=== PATIENT | male | born 1945 | race Caucasian/White ===

== ENCOUNTER 2017-11-17 17:09 | Inpatient (IN) | payer MEDICARE ==
[~2017-11-17] VITALS: Ht 210.8 cm; Wt 111.0 kg
[2017-11-17] MEDS ORDERED: SODIUM CHLORIDE 0.9% 500 ML IV ONE (17:35)
[2017-11-17] MEDS ORDERED: PANTOPRAZOLE 40 MG/10 ML VIAL IV ONE (17:45)
[2017-11-17 18:02] LABS: Basophils # (auto) 0 uL; Basophils % (auto) 0.2 % (0.0-2.0); Eosinophils # (auto) 0 uL; Hematocrit 35.9 % (41.0-53.0); Hemoglobin 12.4 g/dL (13.5-17.5); Lymphocytes % (auto) 6.7 % (10.0-50.0); Mean Corpuscular Hemoglobin 32.9 pg (28.0-32.0); Mean Corpuscular Hgb Conc. 34.6 g/dL (32.0-36.0); Monocytes # (auto) 1.3 uL; Monocytes % (auto) 9.1 % (0.0-12.0); Neutrophils # (auto) 12.4 uL; Platelet Count (auto) 206 10^3/uL (140-450); Red Blood Cells 3.78 10^6/uL (4.5-5.90); Red Cell Distribution Width 13.4 % (11.8-14.3); White Blood Cell 14.7 10^3/uL (4.4-10.8)
[2017-11-17 18:17] LABS: INR 1.29 (0.9-1.15); Partial Thromboplastin Time 25.3 sec (23.78-33.04); Prothrombin Time 13.6 sec (9.27-12.13)
[2017-11-17 18:23] LABS: Albumin 3.6 g/dL (3.4-5.0); BUN/Creatinine Ratio 45.8; Bilirubin, Total 1.6 mg/dL (0.2-1.0); Potassium 4.6 mmol/L (3.5-5.1); Total Protein 7.3 g/dL (6.4-8.2)
[2017-11-17] MEDS ORDERED: SODIUM CHLORIDE 0.9% 1,000 ML IV ONE (20:00)
[2017-11-17] MEDS ORDERED: MORPHINE SULFATE 8mg/ml INJ SDV IV ONE (20:00)
[2017-11-17] MEDS ORDERED: ONDANSETRON HCL 4 MG/2 ML VIAL IV ONE (20:00)
[2017-11-17] MEDS ORDERED: MORPHINE SULF INJ 2 MG/ML SYRINGE 1ML ONE (20:06)
[2017-11-17] MEDS ORDERED: ACETAMINOPHEN 325 MG TAB PO PRN (21:15)
[2017-11-17] MEDS ORDERED: NITROGLYCERIN 0.4 MG SL TAB SL PRN (21:15)
[2017-11-17] MEDS ORDERED: MORPHINE SULF(PF) 0.5MG/ML 10ML VIAL IV PRN (21:15)
[2017-11-17] MEDS ORDERED: TEMAZEPAM 15 MG CAP PO PRN (21:15)
[2017-11-17] MEDS ORDERED: ONDANSETRON HCL 4 MG/2 ML VIAL IV PRN (21:15)
[2017-11-17] MEDS: PANTOPRAZOLE 40 MG/10 ML VIAL IV SCH (21:22)
[2017-11-17] MEDS: SODIUM CHLORIDE 0.9% 1,000 ML IV SCH (21:27)
[2017-11-17 22:01] LABS: Hematocrit 33.6 % (41.0-53.0); Hemoglobin 11.9 g/dL (13.5-17.5)
[2017-11-17 22:23] LABS: Urine Bacteria NONE SEEN /hpf (None Seen); Urine Blood Negative /uL (Negative); Urine Hyaline Cast FEW /lpf (0 - 2); Urine Specific Gravity 1.022 (1.001-1.035); Urine WBC 2 /hpf (0 - 3)
[2017-11-17] MEDS ORDERED: DIGOXIN (250MCG/ML) 2 ML AMPULE IV ONE (23:15)
[2017-11-17 23:25] VITALS: BP 122/80
[2017-11-17 23:30] VITALS: BP 122/80
[2017-11-17] MEDS: HYDROcodone-ACET 5/325MG TAB PO PRN (23:53)
[2017-11-18] MEDS: NALBUPHINE HCL 10 MG/1ml INJECTION IV PRN ×4 (03:29→17:46)
[2017-11-18 03:47] LABS: Basophils # (auto) 0 uL; Basophils % (auto) 0.2 % (0.0-2.0); Eosinophils # (auto) 0 uL; Hematocrit 31.4 % (41.0-53.0); Hemoglobin 11.2 g/dL (13.5-17.5); Lymphocytes # (auto) 1.8 uL; Lymphocytes % (auto) 12.2 % (10.0-50.0); Mean Corpuscular Hemoglobin 33.7 pg (28.0-32.0); Mean Corpuscular Hgb Conc. 35.6 g/dL (32.0-36.0); Mean Corpuscular Volume 94.7 fL (80.0-100.0); Monocytes # (auto) 1.3 uL; Monocytes % (auto) 8.8 % (0.0-12.0); Neutrophils # (auto) 11.5 uL; Neutrophils % (auto) 78.8 % (37.0-80.0); Platelet Count (auto) 186 10^3/uL (140-450); Red Blood Cells 3.32 10^6/uL (4.5-5.90); Red Cell Distribution Width 13.5 % (11.8-14.3); White Blood Cell 14.6 10^3/uL (4.4-10.8)
[2017-11-18 04:07] LABS: Albumin 3.5 g/dL (3.4-5.0); BUN/Creatinine Ratio 59.8; Bilirubin, Total 0.8 mg/dL (0.2-1.0); Calcium 8.8 mg/dL (8.5-10.1); Total Protein 6.8 g/dL (6.4-8.2)
[2017-11-18] MEDS: SODIUM CHLORIDE 0.9% 1,000 ML IV SCH (04:09)
[2017-11-18] MEDS ORDERED: CARV6.25 PO (06:03)
[2017-11-18] MEDS ORDERED: RIVA20TA PO (06:03)
[2017-11-18] MEDS ORDERED: METO25TA5 PO (06:03)
[2017-11-18] MEDS ORDERED: SIMV-13 PO (06:03)
[2017-11-18] MEDS ORDERED: HYDR-4683 PO (06:03)
[2017-11-18] MEDS ORDERED: ASPI-498 OR (06:03)
[2017-11-18] MEDS ORDERED: DIGO0.1262 PO (06:03)
[2017-11-18] MEDS ORDERED: AMLO5TAB2 PO (06:03)
[2017-11-18] MEDS: HYDROcodone-ACET 5/325MG TAB PO PRN (07:57)
[2017-11-18] MEDS: PANTOPRAZOLE 40 MG/10 ML VIAL IV SCH ×2 (09:25→21:05)
[2017-11-18] MEDS: DIGOXIN 0.125 MG TAB PO SCH (09:26)
[2017-11-18] MEDS: amLODIPine BESYLATE 5 MG TAB PO SCH (09:27)
[2017-11-18] MEDS ORDERED: METOPROLOL TARTRATE 25 MG TAB PO SCH (10:00)
[2017-11-18 12:00] VITALS: BP 124/85
[2017-11-18] MEDS ORDERED: METOPROLOL TARTRATE 25 MG TAB PO ONE (13:00)
[2017-11-18 16:00] VITALS: BP 145/92
[2017-11-18 20:31] VITALS: BP 124/83
[2017-11-18 20:58] VITALS: BP 143/82
[2017-11-18] MEDS: HYDROcodone-ACET 10/325MG TAB PO PRN (21:05)
[2017-11-18] MEDS: METOPROLOL TARTRATE 50 MG TAB PO SCH (21:05)
[2017-11-18] MEDS: PRAVASTATIN SODIUM 20 MG TAB PO SCH (21:06)
[2017-11-18] MEDS ORDERED: PATIENTS OWN MEDICATION (simvastatin 40 MG) PO SCH (22:00)
[2017-11-19 00:28] VITALS: BP 115/70
[2017-11-19] MEDS ORDERED: PHENAZOPYRIDINE HCL 100 MG TAB PO ONE (02:15)
[2017-11-19 05:23] LABS: Basophils # (auto) 0 uL; Basophils % (auto) 0.1 % (0.0-2.0); Eosinophils # (auto) 0 uL; Eosinophils % (auto) 0.2 % (0.0-7.0); Hematocrit 28.2 % (41.0-53.0); Hemoglobin 9.9 g/dL (13.5-17.5); Lymphocytes # (auto) 1.8 uL; Lymphocytes % (auto) 14.2 % (10.0-50.0); Mean Corpuscular Hemoglobin 33.6 pg (28.0-32.0); Mean Corpuscular Hgb Conc. 35.1 g/dL (32.0-36.0); Mean Corpuscular Volume 95.8 fL (80.0-100.0); Monocytes # (auto) 0.9 uL; Monocytes % (auto) 7.2 % (0.0-12.0); Neutrophils # (auto) 9.8 uL; Neutrophils % (auto) 78.3 % (37.0-80.0); Platelet Count (auto) 171 10^3/uL (140-450); Red Blood Cells 2.95 10^6/uL (4.5-5.90); Red Cell Distribution Width 13.4 % (11.8-14.3); White Blood Cell 12.5 10^3/uL (4.4-10.8)
[2017-11-19 05:39] LABS: Calcium 8.2 mg/dL (8.5-10.1)
[2017-11-19 08:00] VITALS: BP 116/68
[2017-11-19] MEDS: amLODIPine BESYLATE 5 MG TAB PO SCH (10:00)
[2017-11-19] MEDS: PANTOPRAZOLE 40 MG/10 ML VIAL IV SCH ×2 (10:55→20:18)
[2017-11-19] MEDS: METOPROLOL TARTRATE 50 MG TAB PO SCH ×2 (10:56→20:19)
[2017-11-19] MEDS: DIGOXIN 0.125 MG TAB PO SCH (10:56)
[2017-11-19] MEDS: HYDROcodone-ACET 10/325MG TAB PO PRN ×3 (10:57→18:51)
[2017-11-19 12:00] VITALS: BP 123/69
[2017-11-19] MEDS: PHENAZOPYRIDINE HCL 100 MG TAB PO SCH ×2 (14:28→18:00)
[2017-11-19 16:00] VITALS: BP_SYST 109; BP_SYST 126; BP_DIAS 57; BP_DIAS 87
[2017-11-19] MEDS: PRAVASTATIN SODIUM 20 MG TAB PO SCH (20:19)
[2017-11-19 21:51] VITALS: BP 126/63
[2017-11-20 04:15] VITALS: BP 112/53
[2017-11-20 06:18] LABS: Basophils # (auto) 0 uL; Basophils % (auto) 0.1 % (0.0-2.0); Eosinophils # (auto) 0.1 uL; Eosinophils % (auto) 0.8 % (0.0-7.0); Hematocrit 25.7 % (41.0-53.0); Hemoglobin 9.2 g/dL (13.5-17.5); Lymphocytes # (auto) 1.6 uL; Lymphocytes % (auto) 19.5 % (10.0-50.0); Mean Corpuscular Hemoglobin 33.9 pg (28.0-32.0); Mean Corpuscular Hgb Conc. 35.9 g/dL (32.0-36.0); Mean Corpuscular Volume 94.3 fL (80.0-100.0); Monocytes # (auto) 0.6 uL; Monocytes % (auto) 8.1 % (0.0-12.0); Neutrophils # (auto) 5.7 uL; Neutrophils % (auto) 71.5 % (37.0-80.0); Nucleated Red Blood Cells % 0.1 %; Platelet Count (auto) 126 10^3/uL (140-450); Red Blood Cells 2.72 10^6/uL (4.5-5.90); Red Cell Distribution Width 13.2 % (11.8-14.3)
[2017-11-20 06:33] LABS: INR 1.34 (0.9-1.15); Partial Thromboplastin Time 23.9 sec (23.78-33.04); Prothrombin Time 14.1 sec (9.27-12.13)
[2017-11-20 06:47] LABS: BUN/Creatinine Ratio 24.4; Potassium 3.8 mmol/L (3.5-5.1)
[2017-11-20] MEDS: HYDROcodone-ACET 10/325MG TAB PO PRN ×3 (07:21→14:40)
[2017-11-20] MEDS ORDERED: FUROSEMIDE 20 MG/2 ML VIAL IV ONE (08:15)
[2017-11-20] MEDS ORDERED: diphenhdrAMINE HCL 50 MG/1 ML VL ONE (08:58)
[2017-11-20] MEDS ORDERED: LIDOCAINE VISCOUS 2% 15ML UD ONE (08:58)
[2017-11-20] MEDS ORDERED: SODIUM CHLORIDE LOCK 10 ML ONE (08:58)
[2017-11-20] MEDS ORDERED: NALOXONE HCL 0.4 MG/ML VIAL ONE (08:58)
[2017-11-20] MEDS ORDERED: FLUMAZENIL 0.1 MG/ML INJ 10ML MDV IV ONE (08:58)
[2017-11-20 09:00] VITALS: BP 128/60
[2017-11-20] MEDS: MIDAZOLAM HCL 5 MG/ML-1ML VIAL ONE ×2 (09:38→09:41)
[2017-11-20] MEDS: fentaNYL CITRATE 100 MCG/2 ML VL ONE ×2 (09:38→09:41)
[2017-11-20] MEDS ORDERED: PANTOPRAZOLE 40 MG TAB PO SCH (10:00)
[2017-11-20] MEDS: PHENAZOPYRIDINE HCL 100 MG TAB PO SCH ×2 (10:48→12:00)
[2017-11-20] MEDS: DIGOXIN 0.125 MG TAB PO SCH (10:48)
[2017-11-20] MEDS: METOPROLOL TARTRATE 50 MG TAB PO SCH (10:49)
[2017-11-20] MEDS: amLODIPine BESYLATE 5 MG TAB PO SCH (10:49)
[2017-11-20] MEDS ORDERED: MET50T PO (10:53)
[2017-11-20] MEDS ORDERED: PANT40T PO (10:53)
[2017-11-20 12:46] VITALS: BP 118/65
[2017-11-20 13:00] VITALS: BP 105/59
== END 2017-11-20 16:45 | disposition home or self-care (01) | DRG 242 ==
LOC: ER 17:09 → TELE 17:10 → TELE-EAST 23:10 → DOU IN ICU 23:16 → TELE-EAST 11-18 03:11 → DOU IN ICU 11-18 03:36 → TELE-EAST 11-19 17:36
PROVIDERS: ADMIT Nurse Practitioner; ATTEND Internal Medicine
PROC: 0DJ08ZZ Inspection of Upper Intestinal Tract, Via Natural or Artificial Opening Endoscopic (ICD-10-PCS; principal; 2017-11-20 09:35)
DX: K22.11 Ulcer of esophagus with bleeding (principal); N17.0 Acute kidney failure with tubular necrosis; D68.69 Other thrombophilia; I48.91 Unspecified atrial fibrillation; D62 Acute posthemorrhagic anemia; E86.0 Dehydration; D72.829 Elevated white blood cell count, unspecified; I10 Essential (primary) hypertension; N40.1 Benign prostatic hyperplasia with lower urinary tract symptoms; R73.9 Hyperglycemia, unspecified; E78.5 Hyperlipidemia, unspecified; G47.00 Insomnia, unspecified; R33.9 Retention of urine, unspecified; I49.3 Ventricular premature depolarization; Z79.01 Long term (current) use of anticoagulants; Z79.899 Other long term (current) drug therapy; Z82.49 Family history of ischemic heart disease and other diseases of the circulatory system; Z90.79 Acquired absence of other genital organ(s); Z85.038 Personal history of other malignant neoplasm of large intestine; Z92.21 Personal history of antineoplastic chemotherapy; Z92.3 Personal history of irradiation; Z71.89 Other specified counseling
CPT/HCPCS: 36415; 71045; 74176; 80048; 80053; 80162; 81001; 82270; 83036; 83735; 84295; 85014; 85018; 85025; 85610; 85730; 86850; 86900; 86901; 87081; 87086; 93306; 94761; 96361; 96374; 96375; C9113; J2250; J2405

== ENCOUNTER 2022-03-06 06:38 | Emergency (ER) | payer MEDICARE, MEDICAID ==
[~2022-03-06] VITALS: Ht 188 cm; Wt 95.0 kg
[~2022-03-06 06:38] MED LIST: AMLO-489 PO; CARV6.25 PO; DIGO0.12 PO; HYDR-4833 PO; MET50T PO; PANT40T PO; RIVA20TA PO; SIMV-13 PO
[2022-03-06 07:26] VITALS: BP 163/82
[2022-03-06] MEDS ORDERED: ACE650RS PO (10:19)
== END 2022-03-06 10:25 | disposition home or self-care (01) ==
LOC: ER 06:38
DX: K40.90 Unilateral inguinal hernia, without obstruction or gangrene, not specified as recurrent (principal); E78.5 Hyperlipidemia, unspecified; I10 Essential (primary) hypertension; Z87.891 Personal history of nicotine dependence
CPT/HCPCS: 74176

== ENCOUNTER 2022-06-20 06:56 | Inpatient (IN) | payer MEDICARE, MEDICAID ==
[~2022-06-20] VITALS: Ht 188 cm; Wt 94.0 kg
[~2022-06-20 06:56] MED LIST changes: +ACE650RS PO; +ATOR20TA PO; +HYDR-4072 PO; -HYDR-4833 PO; -MET50T PO; +METF-372 PO; -PANT40T PO; +PRED10TA PO; -SIMV-13 PO
[2022-06-20] MEDS ORDERED: LIDOCAINE 1%HCL (LOCAL ANESTH) 10 ML MDV ONE (07:37)
[2022-06-20] MEDS ORDERED: BUPIVACAINE 0.5% P/F INJ 10 ML VIAL ONE (07:37)
[2022-06-20] MEDS ORDERED: ceFAZolin 1GM VL ONE (07:37)
[2022-06-20] MEDS ORDERED: ceFAZolin 1GM/50ML 100 ML IV ONE (07:44)
[2022-06-20] MEDS ORDERED: MIDAZOLAM HCL 2MG/2ML 2ml VIAL (1mg/ml) ONE (08:03)
[2022-06-20] MEDS ORDERED: fentaNYL CITRATE 100 MCG/2 ML VL ONE ×2 (08:03→10:42)
[2022-06-20] MEDS ORDERED: ROCURONIUM 10MG/ML 10ML VIAL IV ONE (08:04)
[2022-06-20] MEDS ORDERED: fentaNYL CITRATE 5 ML ONE (08:04)
[2022-06-20] MEDS ORDERED: LIDOCAINE HCL 2 %PF INJ 10ML AMP IJ ONE (08:15)
[2022-06-20] MEDS ORDERED: HYDROmorphone HCL 2 MG/ML VL/or syr IV PRN (10:45)
[2022-06-20] MEDS ORDERED: ONDANSETRON HCL 4 MG/2 ML VIAL IV PRN (10:45)
[2022-06-20] MEDS ORDERED: GLYCOPYRROLATE 0.2 MG/ML 1ML VIAL ONE (11:13)
[2022-06-20] MEDS ORDERED: NEOSTIGMINE 1 MG/ML INJ (10mg/10ML VIAL) ONE (11:14)
[2022-06-20] MEDS ORDERED: PROPOFOL 10 MG/ML 20 ML IV ONE (11:14)
[2022-06-20] MEDS ORDERED: MEPERIDINE HCL (25 MG/ML) 1ML VIAL IM ONE (11:45)
[2022-06-20] MEDS: HYDROmorphone HCL 2 MG/ML VL/or syr IV PRN ×4 (11:54→12:39)
[2022-06-20] MEDS ORDERED: IPRATROPIUM BROM 0.5 MG/2.5ML INH SOL NEB ONE (13:30)
[2022-06-20] MEDS ORDERED: ALBUTEROL SULF 2.5 MG/0.5ML(0.5%) NEB SOLN NEB ONE (13:30)
[2022-06-20] MEDS ORDERED: ALBUTEROL MEDNEB 2.5 mg/3ml NEB ONE (13:32)
[2022-06-20] MEDS ORDERED: IPRATROPIUM BROM 0.5 MG/2.5ML INH SOL ONE (13:32)
[2022-06-20] MEDS ORDERED: POTASSIUM CHL 10 Meq TABLET PO ONE (16:30)
[2022-06-20] MEDS ORDERED: FUROSEMIDE 20 MG/2 ML VIAL IV ONE (16:30)
[2022-06-20 19:03] VITALS: BP 125/66
[2022-06-20] MEDS ORDERED: HYDROcodone-ACET 5/325MG TAB PO PRN (19:15)
[2022-06-20] MEDS ORDERED: ACETAMINOPHEN 325 MG TAB PO PRN (19:15)
[2022-06-20] MEDS ORDERED: MORPHINE SULFATE INJ 2 MG/ml SYRG IV PRN (19:30)
[2022-06-20] MEDS ORDERED: NITROGLYCERIN 0.4 MG SL TAB SL PRN (19:30)
[2022-06-20] MEDS ORDERED: ALBUTEROL SULF 2.5 MG/0.5ML(0.5%) NEB SOLN NEB PRN (19:30)
[2022-06-20] MEDS: HYDROcodone-ACET 5/325MG TAB PO PRN (20:42)
[2022-06-20] MEDS: ATORVASTATIN 20 MG TAB PO SCH (20:43)
[2022-06-20] MEDS: CARVEDILOL 3.125 MG TAB PO SCH (20:44)
[2022-06-20] MEDS ORDERED: DEXTROSE (50%) 50ML SYRG IV PRN (21:45)
[2022-06-20 22:00] VITALS: BP 125/66
[2022-06-20 23:46] VITALS: BP 125/66
[2022-06-21] VITALS (7 sets, daily range): BP systolic 124–134; BP diastolic 73–78
[2022-06-21] MEDS ORDERED: InsuLIN REG 1unit/0.01ml Soln (100units/ml) SC SCH
[2022-06-21] MEDS ORDERED: ACCU-CHEK COMFORT CURVE STRIP VI SCH
[2022-06-21] MEDS: HYDROcodone-ACET 5/325MG TAB PO PRN ×3 (00:32→10:00)
[2022-06-21] MEDS: MORPHINE SULFATE INJ 2 MG/ml SYRG IV PRN ×2 (04:30→16:54)
[2022-06-21] MEDS: ACCU-CHEK COMFORT CURVE STRIP VI SCH ×5 (05:52→23:07)
[2022-06-21] MEDS: InsuLIN REG 1unit/0.01ml Soln (100units/ml) SC SCH ×5 (05:59→23:10)
[2022-06-21 06:46] LABS: Basophils # (auto) 0 10 ^3/uL (0-0.2); Basophils % (auto) 0.2 % (0.0-2.0); Eosinophils # (auto) 0.1 10 ^3/uL (0-0.8); Eosinophils % (auto) 0.9 % (0.0-7.0); Hematocrit 41.2 % (41.0-53.0); Lymphocytes # (auto) 0.9 10 ^3/uL (0.4-5.4); Lymphocytes % (auto) 8.2 % (10.0-50.0); Mean Corpuscular Hemoglobin 31.4 pg (28.0-32.0); Mean Corpuscular Hgb Conc. 33.9 g/dL (32.0-36.0); Mean Corpuscular Volume 92.6 fL (80.0-100.0); Monocytes # (auto) 1.1 10 ^3/uL (0-1.3); Monocytes % (auto) 9.8 % (0.0-12.0); Neutrophils # (auto) 9.2 10 ^3/uL (1.6-8.6); Neutrophils % (auto) 80.9 % (37.0-80.0); Red Blood Cells 4.45 10^6/uL (4.5-5.90); Red Cell Distribution Width 13.7 % (11.8-14.3); White Blood Cell 11.3 10^3/uL (4.4-10.8)
[2022-06-21 07:00] LABS: Albumin 3.4 g/dL (3.4-5.0); Calcium 8.8 mg/dL (8.5-10.1); Potassium 3.8 mmol/L (3.5-5.1)
[2022-06-21 07:02] LABS: BUN/Creatinine Ratio 11.4
[2022-06-21 07:05] LABS: Bilirubin, Total 2.8 mg/dL (0.2-1.0)
[2022-06-21] MEDS: metFORMIN HYDROCHLORIDE 500 MG TAB PO SCH ×2 (08:14→18:07)
[2022-06-21] MEDS: CARVEDILOL 3.125 MG TAB PO SCH ×2 (10:00→23:06)
[2022-06-21] MEDS: amLODIPine BESYLATE 5 MG TAB PO SCH (10:01)
[2022-06-21] MEDS: DIGOXIN 0.125 MG TAB PO SCH (10:01)
[2022-06-21] MEDS ORDERED: POTASSIUM CHL 20 Meq TABLET PO ONE (15:45)
[2022-06-21] MEDS ORDERED: FUROSEMIDE 20 MG/2 ML VIAL IV ONE (15:45)
[2022-06-21] MEDS: ATORVASTATIN 20 MG TAB PO SCH (22:59)
[2022-06-22] MEDS: MORPHINE SULFATE INJ 2 MG/ml SYRG IV PRN (02:00)
[2022-06-22 05:00] VITALS: BP 119/71
[2022-06-22] MEDS: HYDROcodone-ACET 5/325MG TAB PO PRN ×2 (05:10→12:32)
[2022-06-22] MEDS: ACCU-CHEK COMFORT CURVE STRIP VI SCH ×2 (05:11→12:31)
[2022-06-22] MEDS: InsuLIN REG 1unit/0.01ml Soln (100units/ml) SC SCH ×2 (05:12→13:23)
[2022-06-22 06:37] LABS: BUN/Creatinine Ratio 19.1; Calcium 8.5 mg/dL (8.5-10.1); Magnesium 1.9 mg/dL (1.6-2.6); Potassium 3.7 mmol/L (3.5-5.1)
[2022-06-22] MEDS ORDERED: ALBUTEROL SULF 2.5 MG/0.5ML(0.5%) NEB SOLN NEB PRN (07:15)
[2022-06-22 07:19] VITALS: BP 119/71
[2022-06-22 07:21] LABS: Basophils # (auto) 0.1 10 ^3/uL (0-0.2); Basophils % (auto) 0.7 % (0.0-2.0); Eosinophils # (auto) 0.2 10 ^3/uL (0-0.8); Eosinophils % (auto) 2.3 % (0.0-7.0); Hematocrit 42.3 % (41.0-53.0); Hemoglobin 14.6 g/dL (13.5-17.5); Lymphocytes # (auto) 0.9 10 ^3/uL (0.4-5.4); Lymphocytes % (auto) 8.8 % (10.0-50.0); Mean Corpuscular Hgb Conc. 34.4 g/dL (32.0-36.0); Monocytes # (auto) 1.3 10 ^3/uL (0-1.3); Monocytes % (auto) 13.5 % (0.0-12.0); Neutrophils # (auto) 7.5 10 ^3/uL (1.6-8.6); Neutrophils % (auto) 74.7 % (37.0-80.0); Red Blood Cells 4.55 10^6/uL (4.5-5.90); Red Cell Distribution Width 13.7 % (11.8-14.3)
[2022-06-22 08:00] VITALS: BP 130/77
[2022-06-22] MEDS: metFORMIN HYDROCHLORIDE 500 MG TAB PO SCH (08:50)
[2022-06-22] MEDS: DIGOXIN 0.125 MG TAB PO SCH (08:50)
[2022-06-22] MEDS: CARVEDILOL 3.125 MG TAB PO SCH (08:50)
[2022-06-22] MEDS: amLODIPine BESYLATE 5 MG TAB PO SCH (08:51)
[2022-06-22] MEDS ORDERED: cefTRIAXone 1GM/50ML D5W 50 ML IV SCH (09:00)
[2022-06-22] MEDS ORDERED: levoFLOXacin 500 MG TAB PO SCH (10:00)
[2022-06-22] MEDS ORDERED: AZITHROMYCIN 500MG/ 250ML 250 ML IV SCH (10:00)
[2022-06-22 12:00] VITALS: BP 103/66
[2022-06-22] MEDS ORDERED: IPRATROPIUM BROM 0.5 MG/2.5ML INH SOL NEB SCH (12:00)
[2022-06-22] MEDS ORDERED: ALBUTEROL SULF 2.5 MG/0.5ML(0.5%) NEB SOLN NEB SCH (12:00)
== END 2022-06-22 15:41 | disposition home or self-care (01) | DRG 350 ==
LOC: SUR 06:56 → OVERFLOW 17:47 → CENTRAL 19:24 → TELE-CENTR 19:26
PROVIDERS: ADMIT Nurse Practitioner Family; ATTEND Internal Medicine
PROC: 8E0W4CZ Robotic Assisted Procedure of Trunk Region, Percutaneous Endoscopic Approach (ICD-10-PCS; 2022-06-20)
PROC: 0YU54JZ Supplement Right Inguinal Region with Synthetic Substitute, Percutaneous Endoscopic Approach (ICD-10-PCS; principal; 2022-06-20 08:27)
DX: K40.90 Unilateral inguinal hernia, without obstruction or gangrene, not specified as recurrent (principal); I50.41 Acute combined systolic (congestive) and diastolic (congestive) heart failure; J96.01 Acute respiratory failure with hypoxia; D68.69 Other thrombophilia; E11.9 Type 2 diabetes mellitus without complications; I48.91 Unspecified atrial fibrillation; J44.9 Chronic obstructive pulmonary disease, unspecified; I11.0 Hypertensive heart disease with heart failure; Z85.038 Personal history of other malignant neoplasm of large intestine; Z82.49 Family history of ischemic heart disease and other diseases of the circulatory system
CPT/HCPCS: 36415; 36600; 71045; 80048; 80053; 82805; 82962; 83735; 83880; 85025; 86850; 86900; 86901; 87070; 87205; 94640; 97110; 97116; 97163; C1713; G0378; J0690; J1815; J2001; J2250; J2704; J3490

== ENCOUNTER 2022-10-24 07:13 | Day surgery (SDC) | payer MEDICARE, MEDICAID ==
[~2022-10-24 07:13] MED LIST changes: -AMLO-489 PO; +AMLO1TAB22 PO; +PANT40TA2 PO; +PRE5T PO; -PRED10TA PO
[2022-10-24] MEDS ORDERED: ceFAZolin 1GM/50ML 100 ML IV ONE (08:10)
[2022-10-24] MEDS ORDERED: KETOROLAC TROMETH 30 MG/ML 1ML VIAL ONE (08:14)
[2022-10-24] MEDS ORDERED: PROPOFOL 10 MG/ML 20 ML IV ONE (08:14)
[2022-10-24] MEDS ORDERED: DexAMETHasone SOD PHOS 10MG/1ML VIAL INJ ONE (08:14)
[2022-10-24] MEDS ORDERED: GLYCOPYRROLATE 0.2 MG/ML 1ML VIAL ONE (08:14)
[2022-10-24] MEDS ORDERED: LIDOCAINE 2% (LOCAL ANESTH.) PF 5ml SDV ONE (08:14)
[2022-10-24] MEDS ORDERED: ONDANSETRON HCL 4 MG/2 ML VIAL ONE (08:14)
[2022-10-24] MEDS ORDERED: VANCOMYCIN HCL 1000 MG VL ONE (08:39)
[2022-10-24 09:48] VITALS: BP 133/82
== END 2022-10-24 09:59 | disposition home or self-care (01) ==
LOC: SUR 07:13
PROVIDERS: ATTEND Anesthesiology Pain Medicine
DX: M48.062 Spinal stenosis, lumbar region with neurogenic claudication (principal)
CPT/HCPCS: 22869; 72100; 76000; 82962; C1821; J0690; J1100; J1885; J2001; J2405; J2704; J3370

== ENCOUNTER → 2024-02-23 | Outpatient (CLI) | payer MEDICARE, MEDICAID ==
[~2024-02-23] MED LIST changes: -CARV6.25 PO; +CARV6.2517 PO; +CHOL50007 PO; +HYDR-4491 PO; +NYS5LQ MT; +POM PO
[2024-02-23 13:20] VITALS: BP 141/74; PULSE 55; RESP 18; O2SAT 96
[2024-02-23 13:33] VITALS: BP 120/70; PULSE 60; RESP 18; O2SAT 96
== END | disposition home or self-care (01) ==
LOC: Rad HDHVI 13:06
PROVIDERS: ATTEND Internal Medicine Cardiovascular Disease
DX: Z01.818 Encounter for other preprocedural examination (principal); J98.4 Other disorders of lung
CPT/HCPCS: 71046; 93005; G0463

== ENCOUNTER 2024-02-26 07:21 | Day surgery (SDC) | payer MEDICARE, MEDICAID ==
[2024-02-23 15:29] LABS: Basophils # (auto) 0 10 ^3/uL (0-0.2); Basophils % (auto) 0.3 % (0.0-2.0); Eosinophils # (auto) 0 10 ^3/uL (0-0.8); Eosinophils % (auto) 0.1 % (0.0-7.0); Hematocrit 39.2 % (41.0-53.0); Hemoglobin 14.1 g/dL (13.5-17.5); Lymphocytes # (auto) 1.3 10 ^3/uL (0.4-5.4); Lymphocytes % (auto) 11.2 % (10.0-50.0); Mean Corpuscular Hemoglobin 33.4 pg (28.0-32.0); Mean Corpuscular Volume 92.8 fL (80.0-100.0); Monocytes # (auto) 0.7 10 ^3/uL (0-1.3); Monocytes % (auto) 6.6 % (0.0-12.0); Neutrophils # (auto) 9.2 10 ^3/uL (1.6-8.6); Neutrophils % (auto) 81.8 % (37.0-80.0); Nucleated Red Blood Cells % 0.1 %; Platelet Count (auto) 269 10^3/uL (140-450); Red Blood Cells 4.22 10^6/uL (4.5-5.90); Red Cell Distribution Width 14.5 % (11.8-14.3); White Blood Cell 11.2 10^3/uL (4.4-10.8)
[2024-02-23 15:55] LABS: INR 1.38 (0.9-1.15); Partial Thromboplastin Time 27.3 SEC (24.5-34.5); Prothrombin Time 14.3 sec (9.3-11.8)
[2024-02-23 16:32] LABS: Chloride 104 mmol/L (98-107); Potassium 4.3 mmol/L (3.5-5.1); Sodium 141 mmol/L (136-145)
[2024-02-23 16:33] LABS: Anion Gap 9 (5-15); Carbon Dioxide 28 mmol/L (20-30)
[2024-02-23 16:34] LABS: Calcium 10.2 mg/dL (8.7-10.4)
[2024-02-23 16:38] LABS: BUN/Creatinine Ratio 8.6 (10.0-20.0); Blood Urea Nitrogen 7 mg/dL (9-23); Glucose 133 mg/dL (74-106)
[~2024-02-26] VITALS: Ht 188 cm; Wt 83.0 kg
[2024-02-26] VITALS (7 sets, daily range): BP systolic 113–133; BP diastolic 78–90; PULSE 88–100; RESP 13–15; O2SAT 93–94
[~2024-02-26 07:21] MED LIST changes: -ACE650RS PO; -HYDR-4072 PO
[2024-02-26] MEDS ORDERED: IOHEXOL 300 MG/ML 100ML BOTTLE IJ ONE (07:22)
[2024-02-26] MEDS ORDERED: HEPARIN IN NS 1000Units/500mL 1,500 ML ONE (09:36)
[2024-02-26] MEDS ORDERED: MIDAZOLAM HCL 2MG/2ML 2ml VIAL (1mg/ml) ONE (09:45)
[2024-02-26] MEDS ORDERED: LIDOCAINE 2%HCL (LOCAL ANESTH.) INJ 20ML MDV ONE (09:45)
[2024-02-26] MEDS ORDERED: ANGIOMAX 250 MG VIAL IV ONE (09:45)
[2024-02-26] MEDS ORDERED: fentaNYL CITRATE 100 MCG/2 ML VL ONE (09:45)
[2024-02-26] MEDS ORDERED: SODIUM CHL 0.9% 0 ML ONE (09:45)
== END 2024-02-26 12:38 | disposition home or self-care (01) ==
LOC: CATH 07:21
PROVIDERS: ATTEND Internal Medicine Cardiovascular Disease
DX: I70.213 Atherosclerosis of native arteries of extremities with intermittent claudication, bilateral legs (principal); I10 Essential (primary) hypertension; Z87.891 Personal history of nicotine dependence; Z82.49 Family history of ischemic heart disease and other diseases of the circulatory system; Q25.46 Tortuous aortic arch; Z79.899 Other long term (current) drug therapy
CPT/HCPCS: 36247; 36415; 75625; 75716; 80048; 85025; 85610; 85730; C1760; C1769; C1887; C1894; J1644; J2250; J3010; Q9967; 99152

== ENCOUNTER → 2024-07-06 | Outpatient (CLI) | payer MEDICARE, MEDICAID ==
[~2024-07-06] MED LIST changes: +ESOM40CA39 PO; +METO25TA36 PO
[2024-07-06 10:00] VITALS: BP 150/87; PULSE 126; RESP 18; O2SAT 97
[2024-07-06 10:23] VITALS: BP 137/90; PULSE 91; RESP 18; O2SAT 95
--- NOTE | 2024-07-06 15:25 | DVH ---
XY CHEST TWO VIEWS ROUTINE, HISTORY: PRE OP COMPARISON: XY CHEST TWO VIEWS ROUTINE on DOS: 02/23/24 XY CHEST TWO VIEWS ROUTINE on DOS: 02/23/24 TECHNICAL DATA: 2 view of the chest was obtained. FINDINGS: Lines and tubes: None Cardiomediastinal silhouette: normal Pulmonary vasculature: normal Lung expansion: normal Lung airspace: normal Lung interstitium: normal Pleura: normal Pneumothorax: no Bones: Unremarkable Other: no IMPRESSION: No acute intrathoracic abnormality.
--- NOTE | 2024-07-08 12:17 | DVHHP ---
ADMIT DATE: 07/07/2024 HISTORY OF PRESENT ILLNESS: The patient is 79 years old with a history of hypertension, hyperlipidemia, strong family history of coronary artery disease in mother, history of tobacco use, but discontinued smoking 28 years ago. The patient is a type 2 diabetic. He has a history now of diastolic dysfunction, atrial fibrillation with rapid ventricular response. He is currently on Toprol-XL, Xarelto, metformin and digoxin for rate control, still his heart rate is significantly elevated. More aggressive therapy of his AFib needs to be undertaken. He denies cardiac arrest in the past. No history of any renal failure. He has no history of heart failure as well. He has abdominal aortic aneurysm, most likely a combination of tobacco use and from hyperlipidemia as well as diabetes and hypertension. PHYSICAL EXAMINATION: VITAL SIGNS: Blood pressure is 134/80, pulse of 80, O2 saturation 96%. HEENT: Pupils are reactive. Funduscopic exam shows no AV nicking, no exudates, no papilledema. NECK: No cervical adenopathy, no supraclavicular adenopathy. PULMONARY: Clear to auscultation. CARDIOVASCULAR: Irregularly-irregular. ABDOMEN: Nontender. No epigastric tenderness. Stool guaiac is negative. ASSESSMENT AND PLAN: The patient, however, with multiple spinal implants, neurotransmitters and infusion devices for pain management. The patient is now scheduled to undergo left heart catheterization. Further recommendations after the angiogram and aortogram. Ede Rivas MD SA/CESARIO/JOSE TID: [id number] RECEIPT: [id number]
== END | disposition home or self-care (01) ==
LOC: Rad HDHVI 10:00
PROVIDERS: ATTEND Internal Medicine Cardiovascular Disease
DX: Z01.818 Encounter for other preprocedural examination (principal); R07.89 Other chest pain; I48.20 Chronic atrial fibrillation, unspecified
CPT/HCPCS: 71046; 93005; G0463

== ENCOUNTER 2024-07-08 06:48 | Day surgery (SDC) | payer MEDICARE, MEDICAID ==
[2024-07-06 12:17] LABS: Basophils # (auto) 0 10 ^3/uL (0-0.2); Basophils % (auto) 0.3 % (0.0-2.0); Eosinophils # (auto) 0 10 ^3/uL (0-0.8); Hematocrit 39.5 % (41.0-53.0); Hemoglobin 13.2 g/dL (13.5-17.5); Lymphocytes # (auto) 0.8 10 ^3/uL (0.4-5.4); Lymphocytes % (auto) 7.6 % (10.0-50.0); Mean Corpuscular Hemoglobin 33.6 pg (28.0-32.0); Mean Corpuscular Hgb Conc. 33.5 g/dL (32.0-36.0); Mean Corpuscular Volume 100.1 fL (80.0-100.0); Monocytes # (auto) 0.4 10 ^3/uL (0-1.3); Monocytes % (auto) 3.5 % (0.0-12.0); Neutrophils # (auto) 9.2 10 ^3/uL (1.6-8.6); Neutrophils % (auto) 88.6 % (37.0-80.0); Platelet Count (auto) 246 10^3/uL (140-450); Red Blood Cells 3.94 10^6/uL (4.5-5.90); Red Cell Distribution Width 16.4 % (11.8-14.3); White Blood Cell 10.3 10^3/uL (4.4-10.8)
[2024-07-06 12:46] LABS: Calcium 9.9 mg/dL (8.7-10.4); Chloride 106 mmol/L (98-107); INR 2.24 (0.9-1.15); Partial Thromboplastin Time 31.5 SEC (24.5-34.5); Potassium 4.4 mmol/L (3.5-5.1); Prothrombin Time 21.9 sec (9.3-11.8); Sodium 143 mmol/L (136-145)
[2024-07-06 12:51] LABS: BUN/Creatinine Ratio 11.8 (10.0-20.0); Blood Urea Nitrogen 10 mg/dL (9-23)
[2024-07-06 13:03] LABS: Glucose 154 mg/dL (74-106)
[2024-07-06 13:04] LABS: Anion Gap 15 (5-15); Carbon Dioxide 22 mmol/L (20-31)
[~2024-07-08] VITALS: Ht 188 cm; Wt 78.9 kg
[2024-07-08] VITALS (8 sets, daily range): BP systolic 129–152; BP diastolic 82–109; PULSE 80–100; RESP 12–19; TEMP 97.8; O2SAT 92–96
[~2024-07-08 06:48] MED LIST changes: -AMLO1TAB22 PO; -CARV6.2517 PO; -HYDR-4491 PO; -PANT40TA2 PO
[2024-07-08] MEDS ORDERED: IOHEXOL 350 MG/ML 100ML IJ ONE ×2 (07:31→08:00)
[2024-07-08] MEDS ORDERED: SODIUM CHL 0.9% 0 ML ONE (08:29)
[2024-07-08] MEDS ORDERED: MIDAZOLAM HCL 2MG/2ML 2ml VIAL (1mg/ml) ONE (08:29)
[2024-07-08] MEDS ORDERED: fentaNYL CITRATE 100 MCG/2 ML VL ONE (08:29)
[2024-07-08] MEDS ORDERED: ANGIOMAX 250 MG VIAL IV ONE (08:29)
[2024-07-08] MEDS ORDERED: LIDOCAINE 2%HCL (LOCAL ANESTH.) INJ 20ML MDV ONE (08:30)
--- NOTE | 2024-07-08 12:10 | DVHOP ---
DATE OF SURGERY: 07/08/2024 PROCEDURES PERFORMED: * Selective left and right coronary angiography. * Ventriculogram. * Aortogram. * Conscious sedation. DESCRIPTION OF PROCEDURE: The patient was prepped and draped in a sterile condition. Xylocaine 1% used to anesthetize the right groin. Using a Cook needle, the right femoral artery was engaged with Seldinger technique. A 6-Nauruan sheath in the right femoral artery. Using a 6-Nauruan JL4.5 diagnostic catheter, we were able to cannulate the left main. Using a 6-Nauruan JR4 diagnostic catheter, we were able to cannulate the RCA. There were no complications. The patient tolerated the procedure well. Using a pigtail catheter, aortogram and ventriculogram was performed. The patient had a very tortuous abdominal aorta and he was told in the past he has an abdominal aortic aneurysm measuring about 5 cm in diameter, but nothing was done for this patient. RESULTS: * The patient had abdominal aortic aneurysm after aortogram shows the patient to have a measuring about 5.2 cm infrarenal tortuous acute angulation. At this time, the patient should be considered for abdominal aortic aneurysm stenting. * Selective left and right coronary angiography revealed: Left main patent. Left anterior descending artery mild intimal irregularity without any flow restrictive lesion. Circumflex mild intimal irregularity without any flow restrictive lesion and right coronary artery nondominant vessel without any flow restrictive lesion. Left ventricular function showed an ejection fraction of 50% and LVEDP of 20 mmHg. At this time, the patient should aggressively be treated with antihypertensive agent. There is no significant epicardial vessel. Therefore, his chest pain is noncardiac in nature, however, the patient has a historically significant aortic aneurysm that will require intervention. Ede Rivas MD SA/ANDREW TID: [id number] RECEIPT: [id number]
--- NOTE | 2024-07-08 12:46 | DVHDS ---
DATE OF DISCHARGE: 07/08/2024 DISCHARGE DIAGNOSES: * The patient with abdominal aortic aneurysm, measuring 5.2 cm in diameter, infrarenal. * Normal coronary anatomy with mild epicardial disease, circumflex dominant system. HOSPITAL COURSE: The patient is clinically stable. Aggressive antihypertensive therapy should be initiated. The patient may be a candidate for abdominal aortic aneurysm stenting. We will continue to follow the patient. Stable at the time of discharge. DISPOSITION: Home. ACTIVITY: As instructed. DIET: Will be 2-gram sodium diet. Ede Rivas MD SA/ALETHA TID: [id number] RECEIPT: [id number]
== END 2024-07-08 11:25 | disposition home or self-care (01) ==
LOC: CATH 06:48
PROVIDERS: ATTEND Internal Medicine Cardiovascular Disease
DX: R07.89 Other chest pain (principal); I71.40 Abdominal aortic aneurysm, without rupture, unspecified; I77.1 Stricture of artery
CPT/HCPCS: 36415; 80048; 85025; 85610; 85730; 93458; C1760; C1769; C1894; J1644; J2250; J3010; J7030; Q9967; 99152

== ENCOUNTER → 2024-07-19 | Outpatient (CLI) | payer MEDICARE, MEDICAID ==
[~2024-07-19] MED LIST changes: +IOHEXOL 350 MG/ML 100ML IJ ONE
[2024-07-19 09:10] VITALS: BP 145/95; PULSE 97; RESP 16; O2SAT 94
[2024-07-19 09:38] VITALS: BP 142/89; PULSE 96; RESP 16; O2SAT 94
--- NOTE | 2024-07-19 10:51 | DVH ---
Procedure: CT ANGIO AORTIC ABDOMINAL HISTORY: AAA Comparison Study: CT abdomen and pelvis 03/06/2022 Exam Date:07/19/2024 09:14 AM TECHNIQUE: CTA scanner volumetric data acquisition of abdomen and pelvis was obtained following intravenous admi nistration of intravenous contrast without any reported adverse effects. Axial images were reconstruc bo and additional sagittal and coronal images were reformatted. Arterial phase imaging were performe d. Postprocessing was also performed on a separate workstation. 3 D images were performed on a dedicated workstation and reviewed for reporting. CONTRAST: Type of contrast: Omni 350 Contrast injected: 100 ml Radiation dose : CT Dose: CTDI volume is 5.89 mGy. Dose-length product is 320.28 mGy*cm FINDINGS: Vascular: Exam is limited by poor contrast opacification of the arterial structures. Aortic measurements: aortic hiatus 31 mm, suprarenal abdominal aorta 28 mm and infrarenal aorta 45 x 50 mm. The mesenteric, bilateral renal, and iliac arteries appear patent without focal stenosis or aneur ysm. There is diffuse calcified atherosclerotic disease. Evaluation of the pelvic vessels is limited by tortuosity with minimal contrast opacification. Lung Bases: Atelectasis and scarring in the lung bases. Trace bilateral pleural effusions. Moderate c ardiomegaly. Liver: The liver is normal in size. No focal lesions. Normal hepatic vascular enhancement. Gallbladder and biliary Tree: Sludge in the gallbladder. Spleen: Unremarkable Pancreas: The pancreas is normal in appearance without focal lesions or abnormal enhancement. Adrenal Glands: Unremarkable Kidneys: Bilateral renal cysts. No hydronephrosis or nephrolithiasis. Bladder: Grossly unremarkable for degree of distention. Bowel: The stomach is grossly normal in appearance. Small bowel and colon are normal in caliber and d istribution. Normal appendix is visualized in the right lower quadrant without findings of appendici tis. Ascites: Absent Lymphadenopathy: No mesenteric, retroperitoneal or periportal lymphadenopathy. Abdominal wall and Mesentery: Fat containing left inguinal hernia. Vasculature: See above Pelvic Organs: Prostate is enlarged. Musculoskeletal: No aggressive focal bony lesions, acute fractures or dislocation. IMPRESSION: 1. Limited by poor contrast opacification of arterial structures likely secondary to poor cardiac out put. Infrarenal abdominal aortic aneurysm measuring up to 50 mm. Tortuosity of the pelvic vessels. N o definite hemodynamically significant stenosis identified. Vascular surgery evaluation is recommende d. 2. Moderate cardiomegaly. Trace bilateral pleural effusions. Atelectasis scarring in the lung bases . Sludge in the gallbladder. Bilateral renal cysts. Fat containing left inguinal hernia. Prostatomega ly. HS:Y
== END | disposition home or self-care (01) ==
LOC: Rad HDHVI 08:55
PROVIDERS: ATTEND Internal Medicine Cardiovascular Disease
DX: I71.43 Infrarenal abdominal aortic aneurysm, without rupture (principal); N28.1 Cyst of kidney, acquired; K40.90 Unilateral inguinal hernia, without obstruction or gangrene, not specified as recurrent; N40.0 Benign prostatic hyperplasia without lower urinary tract symptoms; K82.8 Other specified diseases of gallbladder; I51.7 Cardiomegaly; I70.90 Unspecified atherosclerosis; J98.11 Atelectasis
CPT/HCPCS: 74175; G0463; Q9967

== ENCOUNTER 2024-08-19 06:56 | Inpatient (IN) | payer MEDICARE, MEDICAID ==
[2024-08-17 12:50] LABS: Basophils # (auto) 0 10 ^3/uL (0-0.2); Basophils % (auto) 0.5 % (0.0-2.0); Eosinophils # (auto) 0 10 ^3/uL (0-0.8); Eosinophils % (auto) 0.5 % (0.0-7.0); Hemoglobin 15.4 g/dL (13.5-17.5); Lymphocytes # (auto) 1.6 10 ^3/uL (0.4-5.4); Mean Corpuscular Hemoglobin 33.2 pg (28.0-32.0); Mean Corpuscular Hgb Conc. 34.1 g/dL (32.0-36.0); Mean Corpuscular Volume 97.3 fL (80.0-100.0); Monocytes # (auto) 0.7 10 ^3/uL (0-1.3); Monocytes % (auto) 10.4 % (0.0-12.0); Neutrophils # (auto) 4.4 10 ^3/uL (1.6-8.6); Neutrophils % (auto) 64.6 % (37.0-80.0); Nucleated Red Blood Cells % 0.1 %; Platelet Count (auto) 168 10^3/uL (140-450); Red Blood Cells 4.62 10^6/uL (4.5-5.90); White Blood Cell 6.8 10^3/uL (4.4-10.8)
[2024-08-17 13:01] LABS: INR 1.61 (0.9-1.15); Partial Thromboplastin Time 30.8 SEC (24.5-34.5); Prothrombin Time 16.3 sec (9.3-11.8)
[2024-08-17 13:14] LABS: Anion Gap 12 (5-15); Carbon Dioxide 25 mmol/L (20-31); Chloride 101 mmol/L (98-107); Potassium 4.4 mmol/L (3.5-5.1); Sodium 138 mmol/L (136-145)
[2024-08-17 13:20] LABS: BUN/Creatinine Ratio 13.4 (10.0-20.0); Blood Urea Nitrogen 22 mg/dL (9-23)
[2024-08-17 13:22] LABS: Glucose 181 mg/dL (74-106)
[2024-08-19] VITALS (14 sets, daily range): BP systolic 92–137; BP diastolic 53–90; PULSE 70–94; RESP 12–28; TEMP 97.5–98.1; O2SAT 95–100
[~2024-08-19] VITALS: Ht 188 cm; Wt 65.5 kg
[~2024-08-19 06:56] MED LIST changes: +FLUC200T PO; -IOHEXOL 350 MG/ML 100ML IJ ONE; +LIDO5DIS21 TOP; -NYS5LQ MT
[2024-08-19] MEDS ORDERED: MORPHINE SULFATE INJ 2 MG/ml SYRG IV PRN (10:30)
[2024-08-19] MEDS: SODIUM CHLORIDE 0.9% 1,000 ML IV ONE (10:30)
[2024-08-19] MEDS ORDERED: ONDANSETRON HCL 4 MG/2 ML VIAL IV PRN (10:30)
[2024-08-19] MEDS ORDERED: NITROGLYCERIN 0.4 MG SL TAB SL PRN (10:30)
--- NOTE | 2024-08-19 11:46 | DVHHP2 ---
Admitting Diagnosis: AAA NOW SCHEDULED FOR STENT GRAFT History of Present Illness The patient is 79 years old with a history of hypertension, hyperlipidemia, strong family history of coronary artery disease in mother, history of tobacco use, but discontinued smoking 28 years ago. The patient is a type 2 diabetic. He has a history now of diastolic dysfunction, atrial fibrillation with rapid ventricular response. He is currently on Toprol-XL, Xarelto, metformin and digoxin for rate control, still his heart rate is significantly elevated. More aggressive therapy of his AFib needs to be undertaken. He denies cardiac arrest in the past. No history of any renal failure. He has no history of heart failure as well. He has abdominal aortic aneurysm, most likely a combination of tobacco use and from hyperlipidemia as well as diabetes and hypertension. PHYSICAL EXAMINATION: VITAL SIGNS: Blood pressure is 134/80, pulse of 80, O2 saturation 96%. HEENT: Pupils are reactive. Funduscopic exam shows no AV nicking, no exudates, no papilledema. NECK: No cervical adenopathy, no supraclavicular adenopathy. PULMONARY: Clear to auscultation. CARDIOVASCULAR: Irregularly-irregular. ABDOMEN: Nontender. No epigastric tenderness. Stool guaiac is negative. ASSESSMENT AND PLAN: The patient, however, with multiple spinal implants, neurotransmitters and infusion devices for pain management. The patient is now scheduled to undergo left heart catheterization. Further recommendations after the angiogram and aortogram. Past Medical History The patient is 79 years old with a history of hypertension, hyperlipidemia, strong family history of coronary artery disease in mother, history of tobacco use, but discontinued smoking 28 years ago. The patient is a type 2 diabetic. He has a history now of diastolic dysfunction, atrial fibrillation with rapid ventricular response. He is currently on Toprol-XL, Xarelto, metformin and digoxin for rate control, still his heart rate is significantly elevated. More aggressive therapy of his AFib needs to be undertaken. He denies cardiac arrest in the past. No history of any renal failure. He has no history of heart failure as well. He has abdominal aortic aneurysm, most likely a combination of tobacco use and from hyperlipidemia as well as diabetes and hypertension.Now with AAA requiring stent graft placement Patient Family History: Hypertension G8 MOTHER Sepsis G8 FATHER Allergies: Coded Allergies: Gabapentin (Verified Allergy, Unknown, SWELLING, 08/17/24) Pregabalin (Verified Allergy, Unknown, SWELLING, 08/17/24) Home Meds Reported Medications Fluconazole (Diflucan) 200 Mg Tab, 400 TAB PO DAILY for FUNGAL INFECTION, THROAT, #7 TAB 08/17/24 Lidocaine (LIDODERM 5% TOPICAL PATCH) 1 Patch Ph, 1 PATCH TOP DAILYP PRN for PAIN SCALE 1 THRU 6, #30 PATCH 1 Refill 08/17/24 Metoprolol Succinate (Toprol Xl) 25 Mg Tab, 100 MG PO for HTN, TAB 07/06/24 Esomeprazole Magnesium Trihydr (Nexium) 40 Mg Cap, 1 CAP PO DAILY, #30 CAP 5 Refills 07/06/24 Cholecalciferol (VITAMIN D3) 5,000 Unit Cap, 5000 UNIT PO DAILY for SUPPLEMENT, CAP 02/23/24 Patients Own Medication (PATIENTS OWN MEDICATION) ., 7.5 MG PO QIDP for HYDROCODONE PTS OWN MED-OBTAIN FROM PT AND SEND TO RX DRUG: FREQ: RX# EXP: DATE DISP: TECH: [facility]: 02/23/24 Prednisone (Prednisone) 5 Mg Tab, 10 MG PO DAILY for LEG PAIN, TAB 10/22/22 Metformin Hydrochloride (Metformin Hcl) 1,000 Mg Tab, 500 MG PO BID for DIABETES, TAB 06/17/22 Atorvastatin Calcium (Lipitor) 20 Mg Tab, 20 MG PO DAILY for HIGH CHOLESTEROL, TAB 06/17/22 Digoxin (Digoxin) 125 Mcg Tab, 125 MCG PO DAILY for ARRHYTHMIA, TAB 11/18/17 Rivaroxaban (XARELTO) 20 Mg Tab, 1 TAB PO DAILY for A. FIB, #30 TAB 11 Refills 11/18/17 Current Medications Current Medications Medications (Trade) Dose Ordered Sig/Sharri Route PRN Reason Start Time Stop Time Status Last Admin Acetaminophen/ Hydrocodone Bitart (Frederick 5/325MG Tab) 1 tab Q4HP PRN PO MODERATE PAIN (4-6 PAIN SCALE) 08/19/24 10:30 Ondansetron HCl (Zofran) 4 mg Q4HP PRN IV NAUSEA / VOMITING 08/19/24 10:30 Nitroglycerin (Ntrostat Sublingual) 0.4 mg Q5MINP PRN SL FOR CHEST PAIN 08/19/24 10:30 Morphine Sulfate 2 mg Q30M PRN IV FOR CHEST PAIN 08/19/24 10:30 Acetaminophen (Tylenol Tablet) 650 mg Q4HP PRN PO MILD PAIN (1-3 PAIN SCALE) 08/19/24 10:30 Atorvastatin Calcium (Lipitor) 20 mg HS PO 08/19/24 22:00 Digoxin (Lanoxin Tablet) 0.125 mg DAILY PO 08/20/24 10:00 Pantoprazole Sodium (Protonix Tablet) 40 mg DAILY PO 08/20/24 10:00 Metoprolol Succinate (Toprol Xl) 100 mg DAILY PO 08/20/24 10:00 Vital Signs PHYSICAL EXAMINATION: VITAL SIGNS: Blood pressure is 134/80, pulse of 80, O2 saturation 96%. Physical Exam HEENT: Pupils are reactive. Funduscopic exam shows no AV nicking, no exudates, no papilledema. NECK: No cervical adenopathy, no supraclavicular adenopathy. PULMONARY: Clear to auscultation. CARDIOVASCULAR: Irregularly-irregular. ABDOMEN: Nontender. No epigastric tenderness. Stool guaiac is negative. Results Labs Test 08/17/24 12:20 Range/Units White Blood Count 6.8 4.4-10.8 10^3/uL Red Blood Count 4.62 4.5-5.90 10^6/uL Hemoglobin 15.4 13.5-17.5 g/dL Hematocrit 45.0 41.0-53.0 % Mean Corpuscular Volume 97.3 80.0-100.0 fL Mean Corpuscular Hemoglobin 33.2 H 28.0-32.0 pg Mean Corpuscular Hemoglobin Concent 34.1 32.0-36.0 g/dL Red Cell Distribution Width 16.0 H 11.8-14.3 % Platelet Count 168 140-450 10^3/uL Mean Platelet Volume 9.2 6.9-10.8 fL Neutrophils (%) (Auto) 64.6 37.0-80.0 % Lymphocytes (%) (Auto) 24.0 10.0-50.0 % Monocytes (%) (Auto) 10.4 0.0-12.0 % Eosinophils (%) (Auto) 0.5 0.0-7.0 % Basophils (%) (Auto) 0.5 0.0-2.0 % Neutrophils # (Auto) 4.4 1.6-8.6 10 ^3/uL Lymphocytes # (Auto) 1.6 0.4-5.4 10 ^3/uL Monocytes # (Auto) 0.7 0-1.3 10 ^3/uL Eosinophils # (Auto) 0 0-0.8 10 ^3/uL Basophils # (Auto) 0 0-0.2 10 ^3/uL Nucleated Red Blood Cells 0.1 % Prothrombin Time 16.3 H 9.3-11.8 sec Prothrombin Time INR 1.61 H 0.9-1.15 Activated Partial Thromboplast Time 30.8 24.5-34.5 SEC Sodium Level 138 136-145 mmol/L Potassium Level 4.4 3.5-5.1 mmol/L Chloride Level 101 98-107 mmol/L Carbon Dioxide Level 25 20-31 mmol/L Anion Gap 12 5-15 Blood Urea Nitrogen 22 9-23 mg/dL Creatinine 1.64 H 0.700-1.30 mg/dL Glomerular Filtration Rate Calc 43 >90 mL/min BUN/Creatinine Ratio 13.4 10.0-20.0 Serum Glucose 181 H 74-106 mg/dL Calcium Level 10.0 8.7-10.4 mg/dL Admitting Diagnosis: HTN AAA INFRARENAL CAD PAD Plan AAA STENT GRAFT Plan discussed with: Patient CHECO ARAUJO MD Aug 19, 2024 11:46
--- NOTE | 2024-08-19 11:53 | DVHDS ---
The patient with history of abdominal aortic aneurysm, underwent successful aortic stent placement [place] graft. The patient still has a small endoleak, but he is on anticoagulation. Once anticoagulation is terminated, I believe the patient will clot off this endoleak. Otherwise, no other changes are required. The procedure went uneventful. The groins were closed using Perclose repair. Surgical repair was performed. There were no complications. The patient tolerated the procedure. Thus, the patient with abdominal aortic aneurysm, status post stent graft placement with bilateral femoral arteriotomy site repair. Ede Rivas MD SA/HELENA TID: [id number] RECEIPT: [id number]
--- NOTE | 2024-08-19 13:10 | DVHOP ---
DATE OF SURGERY: 08/19/2024 PROCEDURES PERFORMED: * Abdominal aortic stent graft placement. * IVUS. * Conscious sedation. * Bilateral common femoral artery arteriotomy repair. DESCRIPTION OF PROCEDURE: The patient was prepped and draped under sterile condition. 1% Xylocaine was used to anesthetize the right groin. Using a Cook needle, the right femoral artery was engaged with Seldinger technique. A guidewire was then appropriately positioned. Using a 10 blade, linear incision was made about 1.5 cm in length to expose the common femoral. Then, 2 closure devices were placed, Perclose devices were placed, into the right femoral artery. Similarly, we placed 2 closure devices, Perclose devices, in the left femoral as well following the incision. Seldinger technique introducing the sheath. Then, the 6-Mozambican sheath was exchanged for an 8-Mozambican sheath in both groins. On the right groin, progressive dilatation of the sheath was done until an 18-Mozambican sheath was deployed into the right groin. The wire used to cannulate at this time was the Amplatz wire. Similarly a 12-Mozambican sheath was introduced into the left groin, again using the Amplatz wire. Following that, abdominal aortography was performed to size the aneurysm. A Saint Robert endograft was then deployed through the 18-Mozambican sheath, which was a Saint Robert Excluder Conformable AAA model #[id number], serial #[id number]. The measurement on this graft is . Similarly, a [place] Robert Excluder contralateral graft was then deployed after it was cannulated using an angled Terumo wire. It was a Saint Robert Excluder AAA endoprosthesis reference #[id number], serial #[id number]. The weaving professor device was then used following onto the contralateral left side using a [place] Robert Excluder AAA endoprosthesis model #[id number], serial #[id number]. Similarly, on the ipsilateral right side the weaving professor device used was a [id number], serial #[id number]. Following the deployment of the ipsilateral and contralateral device deployment and the deployment all segments of overlap as well as the distal segments and the proximal segments were ballooned using a Saint Robert balloon measuring 4 cm. There were no complications. The patient tolerated the procedure well. The left and right arteriotomy site was then surgically repaired using the endo devices that were deployed without any difficulty. Hemostasis obtained. There was no bleeding complication associated with it. Pre and post abdominal aortography was done. There was still a small endoleak that we believe will close once anticoagulation has been terminated. CONCLUSION: The patient has successful deployment of Saint Robert endograft for abdominal aortic aneurysm, infrarenal aneurysm, with successful deployment of Saint Robert endograft and weaving professor devices. Intravascular ultrasound was used to determine whether we were into the graft lumen when the contralateral limb was deployed. Ede Rivas MD SA/HELENA/COLLEEN/DMITRIY TID: [id number] RECEIPT: [id number]
[2024-08-19] MEDS: HYDROcodone-ACET 5/325MG TAB PO PRN (15:14)
[2024-08-19] MEDS: ATORVASTATIN 20 MG TAB PO SCH (20:52)
[2024-08-20] VITALS (17 sets, daily range): BP systolic 125–149; BP diastolic 62–101; PULSE 61–110; RESP 13–25; TEMP 97.5–98.2; O2SAT 97–99
[2024-08-20 03:15] LABS: Basophils # (auto) 0 10 ^3/uL (0-0.2); Basophils % (auto) 0.4 % (0.0-2.0); Eosinophils # (auto) 0 10 ^3/uL (0-0.8); Eosinophils % (auto) 0.3 % (0.0-7.0); Hematocrit 42.8 % (41.0-53.0); Hemoglobin 14.8 g/dL (13.5-17.5); Lymphocytes # (auto) 1.2 10 ^3/uL (0.4-5.4); Lymphocytes % (auto) 13.6 % (10.0-50.0); Mean Corpuscular Hemoglobin 33.5 pg (28.0-32.0); Mean Corpuscular Hgb Conc. 34.5 g/dL (32.0-36.0); Mean Corpuscular Volume 97.1 fL (80.0-100.0); Monocytes # (auto) 1.1 10 ^3/uL (0-1.3); Monocytes % (auto) 12.6 % (0.0-12.0); Neutrophils # (auto) 6.3 10 ^3/uL (1.6-8.6); Neutrophils % (auto) 73.1 % (37.0-80.0); Nucleated Red Blood Cells % 0.4 %; Platelet Count (auto) 155 10^3/uL (140-450); Red Blood Cells 4.41 10^6/uL (4.5-5.90); Red Cell Distribution Width 16.1 % (11.8-14.3); White Blood Cell 8.6 10^3/uL (4.4-10.8)
[2024-08-20 03:24] LABS: Alanine Aminotransferase 11 U/L (7-40); Albumin 3.7 g/dL (3.2-4.8); Alkaline Phosphatase 100 U/L (46-116); Anion Gap 11 (5-15); Aspartate Aminotransferase 26 U/L (13-40); BUN/Creatinine Ratio 16.9 (10.0-20.0); Blood Urea Nitrogen 22 mg/dL (9-23); Calcium 9.6 mg/dL (8.7-10.4); Carbon Dioxide 23 mmol/L (20-31); Chloride 104 mmol/L (98-107); Glucose 95 mg/dL (74-106); Potassium 4.3 mmol/L (3.5-5.1); Sodium 138 mmol/L (136-145); Total Protein 6.6 g/dL (5.7-8.2)
[2024-08-20 03:26] LABS: Bilirubin, Total 1.2 mg/dL (0.2-1.0)
--- NOTE | 2024-08-20 08:36 | DVHPN2 ---
Progress Note - Dictate Date Seen: Aug 20, 2024 Medical Necessity Reason Pt with a Central, PICC or Fol: Yes The following are medically ne: Ray Catheter Subjective PT WITH HTN PAD CAD AAA S/P GORE STENT GRAFT IMPLANTATION LAURIE AFIB HYPERCOAGULABLE STATE vital signs Vital Sign Date Time Temp Pulse Resp B/P (MAP) Pulse Ox O2 Delivery O2 Flow Rate FiO2 08/20/24 06:00 110 14 139/93 (108) 97 08/20/24 05:00 97.5 97.5 08/19/24 20:00 Room Air* 0 Total Intake and Output 08/19/24 08/19/24 08/20/24 15:00 23:00 07:00 Intake Total 600 ml 200 ml 420 ml Output Total 250 ml 450 ml Balance 600 ml -50 ml -30 ml medications Current Medications Medications Dose Ordered Sig/Sharri Route Start Time Stop Time Status Last Admin Dose Admin Acetaminophen/ Hydrocodone Bitart 1 tab Q4HP PRN PO 08/19/24 10:30 08/19/24 20:52 1 TAB Ondansetron HCl 4 mg Q4HP PRN IV 08/19/24 10:30 Nitroglycerin 0.4 mg Q5MINP PRN SL 08/19/24 10:30 Morphine Sulfate 2 mg Q30M PRN IV 08/19/24 10:30 Acetaminophen 650 mg Q4HP PRN PO 08/19/24 10:30 Atorvastatin Calcium 20 mg HS PO 08/19/24 22:00 08/19/24 20:52 20 MG Digoxin 0.125 mg DAILY PO 08/20/24 10:00 Pantoprazole Sodium 40 mg DAILY PO 08/20/24 10:00 Metoprolol Succinate 100 mg DAILY PO 08/20/24 10:00 objective HEENT: Pupils are reactive. Funduscopic exam shows no AV nicking, no exudates, no papilledema. NECK: No cervical adenopathy, no supraclavicular adenopathy. PULMONARY: Clear to auscultation. CARDIOVASCULAR: Irregularly-irregular. ABDOMEN: Nontender. No epigastric tenderness. Stool guaiac is negative. laboratory and microbiology Laboratory Tests 08/20/24 02:42 Test 08/20/24 02:42 Range/Units Serum Glucose 95 74-106 mg/dL Problem List HTN PAD CAD AAA S/P GORE STENT GRAFT IMPLANTATION LAURIE AFIB HYPERCOAGULABLE STATE Assessment/Plan AMBULATE HOLD ALL ANTICOAGULANTS. ANTI PLATELET AGENTS MONITOR RENAL FUNCTION H/H Dietary Evaluation Review Comments: 1. Encourage PO intake to meet 75% of his needs. Glucerna PO 240 ml BID if Pt accepts and tolerates. 2. TF if Poor appetite continues 3. Avoid refeeding syndrome. offer Glucerna 30@ml and gradually increase to goal rate of 55ml/hr providing 79g pro, 1584 kcal. 4. Consider TPN per pharmacy if NPO/poor PO intakes> 7 days and EN and PO feedings are not feasible. Expected Outcomes/Goals: Controlled DM, avoid hyperglycemia, Gradual wt gain, improved muscle strenth, improved nutrition status. Critical Care Time(min): 35 CHECO ARAUJO MD Aug 20, 2024 08:36
[2024-08-20] MEDS: METOPROLOL SUCCINATE XL 50 MG TAB PO SCH (10:05)
[2024-08-20] MEDS: PANTOPRAZOLE 40 MG TAB PO SCH (10:06)
[2024-08-20] MEDS: DIGOXIN 0.125 MG TAB PO SCH (10:06)
[2024-08-20 10:46] LABS: Alanine Aminotransferase 12 U/L (7-40); Albumin 3.8 g/dL (3.2-4.8); Alkaline Phosphatase 105 U/L (46-116); Anion Gap 9 (5-15); Aspartate Aminotransferase 27 U/L (13-40); BUN/Creatinine Ratio 18.2 (10.0-20.0); Blood Urea Nitrogen 22 mg/dL (9-23); Calcium 9.8 mg/dL (8.7-10.4); Carbon Dioxide 23 mmol/L (20-31); Chloride 103 mmol/L (98-107); Potassium 4.6 mmol/L (3.5-5.1); Total Protein 6.9 g/dL (5.7-8.2)
[2024-08-20 10:48] LABS: Bilirubin, Total 1.4 mg/dL (0.2-1.0); Glucose 140 mg/dL (74-106); Sodium 135 mmol/L (136-145)
[2024-08-20] MEDS ORDERED: Ensure HIGH Protein Chocolate 8oz Bottle PO SCH (12:00)
[2024-08-20] MEDS: Glucerna Carbsteady SHAKE Chocolate 8oz PO SCH (18:00)
[2024-08-21] VITALS (8 sets, daily range): BP systolic 125–148; BP diastolic 85–98; PULSE 74–111; RESP 14–19; TEMP 97.4–98.3; O2SAT 96–99
[2024-08-22] VITALS (8 sets, daily range): BP systolic 113–144; BP diastolic 75–95; PULSE 62–114; RESP 15–18; TEMP 97.2–98.3; O2SAT 97–100
[2024-08-23] VITALS (8 sets, daily range): BP systolic 120–140; BP diastolic 76–92; PULSE 50–104; RESP 16–19; TEMP 97.4–98.1; O2SAT 97–99
--- NOTE | 2024-08-23 10:29 | DVHPN2 ---
Progress Note Date Seen: Aug 23, 2024 Medical Necessity Reason Pt with a Central, PICC or Fol: Yes The following are medically ne: Ray Catheter Subjective Patient reports: No new complaints Review of Systems: HEENT:Normal, CVS:Normal, RESPIRATORY:Normal, GI:Normal, :Normal, MSK:Normal, NEURO:Normal Objective vital signs Vital Sign Date Time Temp Pulse Resp B/P (MAP) Pulse Ox O2 Delivery O2 Flow Rate FiO2 08/23/24 09:00 97.5 80 16 133/82 (99) 99 97.5 08/23/24 08:00 Nasal Cannula* 2 28 Total Intake and Output 08/22/24 08/22/24 08/23/24 15:00 23:00 07:00 Intake Total 200 ml 300 ml Output Total 250 ml 250 ml Balance -50 ml 50 ml medications Current Medications Medications Dose Ordered Sig/Sharri Route Start Time Stop Time Status Last Admin Dose Admin Acetaminophen/ Hydrocodone Bitart 1 tab Q4HP PRN PO 08/19/24 10:30 08/23/24 08:50 1 TAB Ondansetron HCl 4 mg Q4HP PRN IV 08/19/24 10:30 Nitroglycerin 0.4 mg Q5MINP PRN SL 08/19/24 10:30 Morphine Sulfate 2 mg Q30M PRN IV 08/19/24 10:30 Acetaminophen 650 mg Q4HP PRN PO 08/19/24 10:30 Atorvastatin Calcium 20 mg HS PO 08/19/24 22:00 08/22/24 21:44 20 MG Digoxin 0.125 mg DAILY PO 08/20/24 10:00 08/23/24 08:49 0.125 MG Pantoprazole Sodium 40 mg DAILY PO 08/20/24 10:00 08/23/24 08:49 40 MG Metoprolol Succinate 100 mg DAILY PO 08/20/24 10:00 08/23/24 08:49 100 MG Enteral Nutritional Formula 240 ml TIDWM PO 08/20/24 12:00 UNV Enteral Nutritional Formula 240 ml TIDWMEALS PO 08/20/24 12:00 08/23/24 08:00 240 ML Examination: GENERAL:Normal, HEENT:Normal, NECK:Normal, LUNGS:Normal, CVS:Normal, ABDOMEN:Normal, MSK:Normal, SKIN:Normal, NEURO:Normal, :Normal laboratory and microbiology Laboratory Tests 08/20/24 10:15 08/20/24 02:42 Test 08/20/24 10:15 Range/Units Serum Glucose 140 H 74-106 mg/dL Microbiology Date/Time Source Procedure Growth Status 08/19/24 11:47 Nose MRSA Screen - Final Complete Problem List/Assessment/Plan Problem List/Assessment/Plan #1 acute resp failure: cont oxygen #2 AAA s/p graft #3 a fib with s/p ablation/hypercoagulable state: cont lopressor #4 dm: ssi #5 h/o colon cancer #6 mod protein malnutrition #7 s/p multiple falls/back pain: xrays #8 likely copd/quit smoking 8 years ago #9 ckd stage 3A advance care planning- full code for now- time spent 21 mins Plan discussed with: Patient My Orders My Orders Orders - TESSA THAO MD Procedure Category Date Status Time Glucose Blood PHA 08/23/24 Verified (Accu-Chek Comfort 11:30 Mild Sliding Scale PHA 08/23/24 Verified 11:30 Dextrose 50% Syringe PHA 08/23/24 Verified 10:30 Complete Blood Count LAB 08/23/24 Verified 10:20 Comprehensive LAB 08/23/24 Verified Metabolic Panel 10:20 Urinalysis LAB 08/23/24 Uncollected 10:20 Complete Blood Count LAB 08/24/24 Verified 06:00 Basic Metabolic Panel LAB 08/24/24 Verified 06:00 Magnesium LAB 08/24/24 Verified 05:00 Chest Portable XY 08/23/24 Verified 10:20 Thyroid Stimulating LAB 08/24/24 Verified Hormone 05:00 Hemoglobin A1c LAB 08/24/24 Verified 06:00 Echo 2d Mode Cardiac US 08/23/24 Verified DOP 10:20 Digoxin (Lanoxin) LAB 08/24/24 Verified 06:00 Thoraco Lumbar XY 08/23/24 Verified 10:20 Dietary Evaluation Review Comments: 1. Encourage PO intake to meet 75% of his needs. Glucerna PO 240 ml BID if Pt accepts and tolerates. 2. TF if Poor appetite continues 3. Avoid refeeding syndrome. offer Glucerna 30@ml and gradually increase to goal rate of 55ml/hr providing 79g pro, 1584 kcal. 4. Consider TPN per pharmacy if NPO/poor PO intakes> 7 days and EN and PO feedings are not feasible. Expected Outcomes/Goals: Controlled DM, avoid hyperglycemia, Gradual wt gain, improved muscle strenth, improved nutrition status. Date of Service: Aug 23, 2024 Billing Provider: TESSA THAO MD Common Visit Codes: [id number] INP/OBS CARE(HIGH) Secondary Visit Codes: [id number] CARE PLAN 30 MINUTES TESSA THAO MD Aug 23, 2024 10:29
[2024-08-23] MEDS ORDERED: DEXTROSE (50%) 50ML SYRG IV PRN (10:30)
[2024-08-23] MEDS: InsuLIN REG 1unit/0.01ml Soln (100units/ml) SC SCH (11:30)
[2024-08-23] MEDS: ACCU-CHEK COMFORT CURVE STRIP VI SCH (11:30)
[2024-08-23 12:13] LABS: Basophils # (auto) 0 10 ^3/uL (0-0.2); Basophils % (auto) 0.6 % (0.0-2.0); Eosinophils # (auto) 0 10 ^3/uL (0-0.8); Eosinophils % (auto) 0.4 % (0.0-7.0); Hematocrit 39.8 % (41.0-53.0); Hemoglobin 13.9 g/dL (13.5-17.5); Lymphocytes # (auto) 0.8 10 ^3/uL (0.4-5.4); Mean Corpuscular Hemoglobin 33.8 pg (28.0-32.0); Mean Corpuscular Hgb Conc. 34.9 g/dL (32.0-36.0); Mean Corpuscular Volume 96.8 fL (80.0-100.0); Monocytes # (auto) 0.9 10 ^3/uL (0-1.3); Monocytes % (auto) 11.6 % (0.0-12.0); Neutrophils # (auto) 5.8 10 ^3/uL (1.6-8.6); Neutrophils % (auto) 76.4 % (37.0-80.0); Nucleated Red Blood Cells % 0.1 %; Platelet Count (auto) 153 10^3/uL (140-450); Red Blood Cells 4.11 10^6/uL (4.5-5.90); Red Cell Distribution Width 15.7 % (11.8-14.3); White Blood Cell 7.6 10^3/uL (4.4-10.8)
[2024-08-23 12:33] LABS: Alanine Aminotransferase 11 U/L (7-40); Albumin 3.6 g/dL (3.2-4.8); Anion Gap 11 (5-15); Aspartate Aminotransferase 27 U/L (13-40); BUN/Creatinine Ratio 21.6 (10.0-20.0); Calcium 9.6 mg/dL (8.7-10.4); Carbon Dioxide 27 mmol/L (20-31); Chloride 98 mmol/L (98-107); Glucose 93 mg/dL (74-106); Potassium 4.4 mmol/L (3.5-5.1); Total Protein 6.4 g/dL (5.7-8.2)
[2024-08-23 12:36] LABS: Alkaline Phosphatase 126 U/L (46-116); Bilirubin, Total 1.9 mg/dL (0.2-1.0); Blood Urea Nitrogen 33 mg/dL (9-23); Sodium 136 mmol/L (136-145)
--- NOTE | 2024-08-23 13:52 | DVH ---
EXAM: XY CHEST PORTABLE TECHNIQUE: Single frontal chest radiograph CLINICAL HISTORY: COPD COMPARISON: CHEST PORTABLE on DOS: 06/22/22, CXRP on DOS: 06/22/22, CHEST XRAY 1 VIEW on DOS: 06/20/22 Findings/Impression: Frontal chest radiograph demonstrates no acute osseous or superficial soft tissue abnormalities. The trachea is midline. The cardiac silhouette and mediastinum are within normal limits. Mild hyperinflation of the lungs. No pneumothorax, pleural effusions, or consolidations.
--- NOTE | 2024-08-23 13:53 | DVH ---
EXAM: XY SPINE THORACIC 2VIEW INDICATION: Recent fall COMPARISON: None TECHNIQUE: 2 views of the thoracic spine were obtained. Findings: There is no definite evidence of an acute fracture, spondylolysis, or spondylolisthesis. The vertebral body heights and disc spaces are well-maintained. No blastic or lytic lesions are appreciated. No radiopaque foreign bodies. No superficial soft tissue abnormalities. Impression: 1. No definite acute osseous abnormality.
[2024-08-23 19:59] LABS: Urine Bacteria None Seen /hpf (None Seen)
[2024-08-23 20:23] LABS: Urine Blood 2+ /uL (Negative); Urine Budding Yeast OCCASIONAL /hpf (None Seen); Urine Clarity Turbid (Clear); Urine Color Yellow (Yellow); Urine Protein, UAD 1+ (Negative); Urine Specific Gravity 1.023 (1.001-1.035); Urine Squamous Epithelial Cell FEW /hpf (<5); Urine Urobilinogen Normal (Negative); Urine WBC 342 /HPF (0-3); Urine WBC Clumps PRESENT /hpf (None Seen)
[2024-08-23] MEDS: ACETAMINOPHEN 325 MG TAB PO PRN (20:40)
[2024-08-24] VITALS (8 sets, daily range): BP systolic 131–147; BP diastolic 75–97; PULSE 54–94; RESP 16–19; TEMP 97–98.9; O2SAT 91–100
[2024-08-24 02:45] LABS: Urine Bacteria FEW /hpf (None Seen); Urine Blood 2+ /uL (Negative); Urine Clarity Turbid (Clear); Urine Color Yellow (Yellow); Urine Hyaline Cast FEW /lpf (0 - 2); Urine Mucus FEW (None Seen); Urine Protein, UAD 1+ (Negative); Urine Specific Gravity 1.022 (1.001-1.035); Urine Squamous Epithelial Cell FEW /hpf (<5); Urine Urobilinogen Normal (Negative); Urine WBC 122 /HPF (0-3)
[2024-08-24 07:51] LABS: Chloride 99 mmol/L (98-107); Potassium 4.2 mmol/L (3.5-5.1); Sodium 136 mmol/L (136-145)
[2024-08-24 07:52] LABS: Anion Gap 13 (5-15); Basophils # (auto) 0.1 10 ^3/uL (0-0.2); Basophils % (auto) 0.8 % (0.0-2.0); Calcium 9.8 mg/dL (8.7-10.4); Eosinophils # (auto) 0 10 ^3/uL (0-0.8); Eosinophils % (auto) 0.5 % (0.0-7.0); Hematocrit 40.1 % (41.0-53.0); Hemoglobin 13.6 g/dL (13.5-17.5); Lymphocytes # (auto) 0.9 10 ^3/uL (0.4-5.4); Lymphocytes % (auto) 12.1 % (10.0-50.0); Mean Corpuscular Hemoglobin 32.8 pg (28.0-32.0); Mean Corpuscular Hgb Conc. 33.8 g/dL (32.0-36.0); Mean Corpuscular Volume 97.1 fL (80.0-100.0); Monocytes # (auto) 0.9 10 ^3/uL (0-1.3); Monocytes % (auto) 12.1 % (0.0-12.0); Neutrophils # (auto) 5.8 10 ^3/uL (1.6-8.6); Neutrophils % (auto) 74.5 % (37.0-80.0); Nucleated Red Blood Cells % 0.3 %; Platelet Count (auto) 168 10^3/uL (140-450); Red Blood Cells 4.13 10^6/uL (4.5-5.90); Red Cell Distribution Width 15.5 % (11.8-14.3); White Blood Cell 7.8 10^3/uL (4.4-10.8)
[2024-08-24 07:57] LABS: BUN/Creatinine Ratio 21.4 (10.0-20.0); Glucose 99 mg/dL (74-106)
[2024-08-24 08:00] LABS: Blood Urea Nitrogen 31 mg/dL (9-23)
[2024-08-24 08:01] LABS: Carbon Dioxide 24 mmol/L (20-31)
--- NOTE | 2024-08-24 09:52 | DVHPN2 ---
Progress Note Date Seen: Aug 24, 2024 Medical Necessity Reason Pt with a Central, PICC or Fol: Yes The following are medically ne: Ray Catheter Subjective Patient reports: No new complaints Review of Systems: HEENT:Normal, CVS:Normal, RESPIRATORY:Normal, GI:Normal, :Normal, MSK:Normal, NEURO:Normal Objective vital signs Vital Sign Date Time Temp Pulse Resp B/P (MAP) Pulse Ox O2 Delivery O2 Flow Rate FiO2 08/24/24 09:18 78 137/91 08/24/24 05:00 97.4 18 98 97.4 08/23/24 20:00 Nasal Cannula* 2 28 Total Intake and Output 08/23/24 08/23/24 08/24/24 15:00 23:00 07:00 Intake Total 1050 ml 0 ml Balance 1050 ml 0 ml medications Current Medications Medications Dose Ordered Sig/Sharri Route Start Time Stop Time Status Last Admin Dose Admin Acetaminophen/ Hydrocodone Bitart 1 tab Q4HP PRN PO 08/19/24 10:30 08/23/24 08:50 1 TAB Ondansetron HCl 4 mg Q4HP PRN IV 08/19/24 10:30 Nitroglycerin 0.4 mg Q5MINP PRN SL 08/19/24 10:30 Morphine Sulfate 2 mg Q30M PRN IV 08/19/24 10:30 Acetaminophen 650 mg Q4HP PRN PO 08/19/24 10:30 08/23/24 20:40 650 MG Atorvastatin Calcium 20 mg HS PO 08/19/24 22:00 08/23/24 21:29 20 MG Pantoprazole Sodium 40 mg DAILY PO 08/20/24 10:00 08/24/24 09:18 40 MG Metoprolol Succinate 100 mg DAILY PO 08/20/24 10:00 08/24/24 09:18 100 MG Enteral Nutritional Formula 240 ml TIDWM PO 08/20/24 12:00 UNV Enteral Nutritional Formula 240 ml TIDWMEALS PO 08/20/24 12:00 08/23/24 18:00 240 ML Diagnostic Test (Pha) 1 strip ACHS 08/23/24 11:30 08/24/24 06:12 1 STRIP Insulin Human Regular ACHS SC 08/23/24 11:30 Dextrose 50 ml UD PRN IV 08/23/24 10:30 Examination: GENERAL:Normal, HEENT:Normal, NECK:Normal, LUNGS:Normal, CVS:Normal, ABDOMEN:Normal, MSK:Normal, SKIN:Normal, NEURO:Normal, :Normal laboratory and microbiology Laboratory Tests 08/24/24 06:03 Test 08/24/24 06:03 Range/Units Serum Glucose 99 74-106 mg/dL Microbiology Date/Time Source Procedure Growth Status 08/19/24 11:47 Nose MRSA Screen - Final Complete Problem List/Assessment/Plan Problem List/Assessment/Plan #1 acute resp failure: cont oxygen #2 AAA s/p graft #3 a fib with s/p ablation/hypercoagulable state: cont lopressor, dig toxicity- stop #4 dm: ssi #5 h/o colon cancer #6 mod protein malnutrition #7 s/p multiple falls/back pain: xrays #8 likely copd/quit smoking 8 years ago #9 ckd stage 3A #10 polyneuropathy-?autoimmune: prednisone advance care planning- full code for now- time spent 21 mins Plan discussed with: Patient My Orders My Orders Orders - TESSA THAO MD Procedure Category Date Status Time Glucose Blood PHA 08/23/24 In Process (Accu-Chek Comfort 11:30 Insulin R (Human) PHA 08/23/24 In Process (Insulin R) 11:30 Dextrose 50% Syringe PHA 08/23/24 In Process 10:30 Chest Portable XY 08/23/24 Resulted 10:20 Spine Thoracic 2view XY 08/23/24 Resulted 10:39 Urine Bacterial GUEVARA 08/24/24 Transmitted Culture 09:14 Invanz 1gm Ivpb Daily PHA 08/24/24 Transmitted 10:00 Tamsulosin PHA 08/24/24 Transmitted Hydrochloride (Flomax) 18:00 Prednisone Tablet PHA 08/24/24 Transmitted 10:00 Basic Metabolic Panel LAB 08/25/24 Verified 06:00 Dietary Evaluation Review Comments: 1. Encourage PO intake to meet 75% of his needs. Glucerna PO 240 ml BID if Pt accepts and tolerates. 2. TF if Poor appetite continues 3. Avoid refeeding syndrome. offer Glucerna 30@ml and gradually increase to goal rate of 55ml/hr providing 79g pro, 1584 kcal. 4. Consider TPN per pharmacy if NPO/poor PO intakes> 7 days and EN and PO feedings are not feasible. Expected Outcomes/Goals: Controlled DM, avoid hyperglycemia, Gradual wt gain, improved muscle strenth, improved nutrition status. Date of Service: Aug 24, 2024 Billing Provider: TESSA THAO MD Common Visit Codes: [id number] INP/OBS CARE(HIGH) TESSA THAO MD Aug 24, 2024 09:52
[2024-08-24] MEDS: predniSONE 5 MG TAB PO SCH (10:41)
[2024-08-24] MEDS: ERTAPENEM SOD INJ 1 GM in SODIUM CHL 0.9% 50 ML IV SCH (15:05)
[2024-08-24] MEDS: TAMSULOSIN HYDROCHLORIDE 0.4 MG CAP PO SCH (17:28)
[2024-08-25] VITALS (8 sets, daily range): BP systolic 122–160; BP diastolic 66–96; PULSE 48–90; RESP 16–22; TEMP 98–100; O2SAT 91–100
[2024-08-25 07:49] LABS: Carbon Dioxide 20 mmol/L (20-31)
[2024-08-25 07:50] LABS: Calcium 9.8 mg/dL (8.7-10.4)
[2024-08-25 07:54] LABS: BUN/Creatinine Ratio 18.5 (10.0-20.0); Glucose 97 mg/dL (74-106)
[2024-08-25 08:03] LABS: Blood Urea Nitrogen 28 mg/dL (9-23)
[2024-08-25 08:12] LABS: Anion Gap 15 (5-15); Chloride 101 mmol/L (98-107); Potassium 4.6 mmol/L (3.5-5.1); Sodium 136 mmol/L (136-145)
--- NOTE | 2024-08-25 10:01 | DVHPN2 ---
Progress Note Date Seen: Aug 25, 2024 Medical Necessity Reason Pt with a Central, PICC or Fol: Yes The following are medically ne: Steward Catheter Reason for steward catheter: Strict I&O Subjective Patient reports: No new complaints Review of Systems: HEENT:Normal, CVS:Normal, RESPIRATORY:Normal, GI:Normal, :Normal, MSK:Normal, NEURO:Normal Objective vital signs Vital Sign Date Time Temp Pulse Resp B/P (MAP) Pulse Ox O2 Delivery O2 Flow Rate FiO2 08/25/24 08:58 99.8 88 19 152/74 (100) 99 99.8 08/25/24 08:00 Nasal Cannula* 2 28 Total Intake and Output 08/24/24 08/24/24 08/25/24 15:00 23:00 07:00 Intake Total 320 ml 560 ml 550 ml Output Total 50 ml 300 ml Balance 320 ml 510 ml 250 ml medications Current Medications Medications Dose Ordered Sig/Sharri Route Start Time Stop Time Status Last Admin Dose Admin Acetaminophen/ Hydrocodone Bitart 1 tab Q4HP PRN PO 08/19/24 10:30 08/23/24 08:50 1 TAB Ondansetron HCl 4 mg Q4HP PRN IV 08/19/24 10:30 Nitroglycerin 0.4 mg Q5MINP PRN SL 08/19/24 10:30 Morphine Sulfate 2 mg Q30M PRN IV 08/19/24 10:30 Acetaminophen 650 mg Q4HP PRN PO 08/19/24 10:30 08/23/24 20:40 650 MG Atorvastatin Calcium 20 mg HS PO 08/19/24 22:00 08/24/24 21:39 20 MG Pantoprazole Sodium 40 mg DAILY PO 08/20/24 10:00 08/25/24 08:48 40 MG Metoprolol Succinate 100 mg DAILY PO 08/20/24 10:00 08/25/24 08:50 100 MG Enteral Nutritional Formula 240 ml TIDWM PO 08/20/24 12:00 UNV Enteral Nutritional Formula 240 ml TIDWMEALS PO 08/20/24 12:00 08/25/24 08:00 240 ML Diagnostic Test (Pha) 1 strip ACHS 08/23/24 11:30 08/25/24 06:02 1 STRIP Insulin Human Regular ACHS SC 08/23/24 11:30 Dextrose 50 ml UD PRN IV 08/23/24 10:30 Ertapenem 1 gm/ Sodium Chloride 50 ml @ 100 mls/hr DAILY IV 08/24/24 10:00 08/25/24 08:48 100 MLS/HR Tamsulosin HCl 0.4 mg QPM PO 08/24/24 18:00 08/24/24 17:28 0.4 MG Prednisone 7.5 mg DAILY PO 08/24/24 10:00 08/25/24 08:48 7.5 MG Examination: GENERAL:Normal, HEENT:Normal, NECK:Normal, LUNGS:Normal, LUNGS:Abnormal (on oxygen), CVS:Normal, ABDOMEN:Normal, MSK:Normal, SKIN:Normal, NEURO:Normal, :Normal laboratory and microbiology Laboratory Tests 08/25/24 06:17 08/24/24 06:03 Test 08/25/24 06:17 Range/Units Serum Glucose 97 74-106 mg/dL Microbiology Date/Time Source Procedure Growth Status 08/19/24 11:47 Nose MRSA Screen - Final Complete Problem List/Assessment/Plan Problem List/Assessment/Plan #1 acute resp failure: cont oxygen #2 AAA s/p graft #3 a fib with s/p ablation/hypercoagulable state: cont lopressor, dig toxicity- stop #4 dm: ssi #5 h/o colon cancer #6 mod protein malnutrition #7 s/p multiple falls/back pain: xrays #8 likely copd/quit smoking 8 years ago #9 ckd stage 3A #10 polyneuropathy-?autoimmune: prednisone #11 uti: culture, iv invanz advance care planning- full code for now- time spent 21 mins Plan discussed with: Patient My Orders My Orders Orders - TESSA THAO MD Procedure Category Date Status Time Insert/Manage Urinary CASEY 08/24/24 In Process Catheter 14:40 Cardiac DIET 08/25/24 Verified Diet-2gna,Lofat,Lochol Lunch Dietary Evaluation Review Comments: 1. Encourage PO intake to meet 75% of his needs. Glucerna PO 240 ml BID if Pt accepts and tolerates. 2. TF if Poor appetite continues 3. Avoid refeeding syndrome. offer Glucerna 30@ml and gradually increase to goal rate of 55ml/hr providing 79g pro, 1584 kcal. 4. Consider TPN per pharmacy if NPO/poor PO intakes> 7 days and EN and PO feedings are not feasible. Expected Outcomes/Goals: Controlled DM, avoid hyperglycemia, Gradual wt gain, improved muscle strenth, improved nutrition status. Date of Service: Aug 25, 2024 Billing Provider: TESSA THAO MD Common Visit Codes: [id number] INP/OBS CARE(HIGH) TESSA THAO MD Aug 25, 2024 10:01
[2024-08-26] VITALS (8 sets, daily range): BP systolic 120–138; BP diastolic 77–91; PULSE 63–110; RESP 17–20; TEMP 97.1–98.6; O2SAT 95–100
[2024-08-26] MEDS: METOPROLOL TARTRATE 25 MG TAB PO SCH (10:00)
--- NOTE | 2024-08-26 10:12 | DVHPN2 ---
Progress Note Date Seen: Aug 26, 2024 Medical Necessity Reason Pt with a Central, PICC or Fol: Yes The following are medically ne: Steward Catheter Reason for steward catheter: Strict I&O Subjective Patient reports: No new complaints Review of Systems: HEENT:Normal, CVS:Normal, RESPIRATORY:Normal, GI:Normal, :Normal, MSK:Normal, NEURO:Normal Objective vital signs Vital Sign Date Time Temp Pulse Resp B/P (MAP) Pulse Ox O2 Delivery O2 Flow Rate FiO2 08/26/24 08:56 103 135/91 08/26/24 08:53 98.6 18 95 98.6 08/25/24 20:00 Nasal Cannula* 2 28 Total Intake and Output 08/25/24 08/25/24 08/26/24 15:00 23:00 07:00 Intake Total 50 ml 450 ml Output Total 250 ml Balance 50 ml 200 ml medications Current Medications Medications Dose Ordered Sig/Sharri Route Start Time Stop Time Status Last Admin Dose Admin Acetaminophen/ Hydrocodone Bitart 1 tab Q4HP PRN PO 08/19/24 10:30 08/23/24 08:50 1 TAB Ondansetron HCl 4 mg Q4HP PRN IV 08/19/24 10:30 Nitroglycerin 0.4 mg Q5MINP PRN SL 08/19/24 10:30 Morphine Sulfate 2 mg Q30M PRN IV 08/19/24 10:30 Acetaminophen 650 mg Q4HP PRN PO 08/19/24 10:30 08/23/24 20:40 650 MG Atorvastatin Calcium 20 mg HS PO 08/19/24 22:00 08/26/24 00:30 20 MG Pantoprazole Sodium 40 mg DAILY PO 08/20/24 10:00 08/26/24 08:56 40 MG Enteral Nutritional Formula 240 ml TIDWM PO 08/20/24 12:00 UNV Enteral Nutritional Formula 240 ml TIDWMEALS PO 08/20/24 12:00 08/26/24 09:49 240 ML Diagnostic Test (Pha) 1 strip ACHS 08/23/24 11:30 08/26/24 06:24 1 STRIP Insulin Human Regular ACHS SC 08/23/24 11:30 08/26/24 00:36 2 UNITS Dextrose 50 ml UD PRN IV 08/23/24 10:30 Tamsulosin HCl 0.4 mg QPM PO 08/24/24 18:00 08/25/24 16:47 0.4 MG Prednisone 7.5 mg DAILY PO 08/24/24 10:00 08/26/24 08:55 7.5 MG Fluconazole 100 ml @ 100 mls/hr DAILY IV 08/26/24 10:00 UNV Metoprolol Tartrate 25 mg BID PO 08/26/24 10:00 UNV Ampicillin Sodium/ Sulbactam Sodium 3 gm/Sodium Chloride 100 ml @ 100 mls/hr Q8HR IV 08/26/24 14:00 UNV Examination: GENERAL:Normal, HEENT:Normal, HEENT:Abnormal (oral thrush), NECK:Normal, LUNGS:Normal, CVS:Normal, ABDOMEN:Normal, MSK:Normal, SKIN:Normal, NEURO:Normal, :Normal laboratory and microbiology Laboratory Tests 08/25/24 06:17 08/24/24 06:03 Test 08/25/24 06:17 Range/Units Serum Glucose 97 74-106 mg/dL Microbiology Date/Time Source Procedure Growth Status 08/23/24 17:00 Voided Urine Urine Culture - Preliminary Resulted 08/19/24 11:47 Nose MRSA Screen - Final Complete Problem List/Assessment/Plan Problem List/Assessment/Plan #1 acute resp failure: cont oxygen #2 AAA s/p graft #3 a fib with s/p ablation/hypercoagulable state: cont lopressor, dig toxicity- stop #4 dm: ssi #5 h/o colon cancer #6 mod protein malnutrition: ng tube, tube feedings #7 s/p multiple falls/back pain: xrays #8 likely copd/quit smoking 8 years ago #9 ckd stage 3A #10 polyneuropathy-?autoimmune: prednisone #11 uti: culture,iv unasy #12 oral thrush: iv fluconazole advance care planning- full code for now- time spent 21 mins Plan discussed with: Patient My Orders My Orders Orders - TESSA THAO MD Procedure Category Date Status Time Place Ng ORDERS 08/26/24 Transmitted 09:53 Fluconazole PHA 08/26/24 Logged 200mg/100ml (Diflucan 10:00 Metoprolol Tartrate PHA 08/26/24 Logged Tablet (Lopressor Ta 10:00 Ampicillin & PHA 08/26/24 Logged Sulbactam Sodium 14:00 Dietary Evaluation Review Comments: 1. Encourage PO intake to meet 75% of his needs. Glucerna PO 240 ml BID if Pt accepts and tolerates. 2. TF if Poor appetite continues 3. Avoid refeeding syndrome. offer Glucerna 30@ml and gradually increase to goal rate of 55ml/hr providing 79g pro, 1584 kcal. 4. Consider TPN per pharmacy if NPO/poor PO intakes> 7 days and EN and PO feedings are not feasible. Expected Outcomes/Goals: Controlled DM, avoid hyperglycemia, Gradual wt gain, improved muscle strenth, improved nutrition status. Date of Service: Aug 26, 2024 Billing Provider: TESSA THAO MD Common Visit Codes: [id number] INP/OBS CARE(HIGH) TESSA THAO MD Aug 26, 2024 10:12
[2024-08-26] MEDS ORDERED: Glucerna 1.2 Cal 1Liter BOTTLE GT SCH (10:15)
[2024-08-26] MEDS: FLUCONAZOLE 200MG/100ML 100 ML IV SCH (12:03)
--- NOTE | 2024-08-26 13:14 | DVH ---
EXAM: XY CHEST PORTABLE Indication: chf Technique: Single frontal view of the chest was obtained Comparison: XY CHEST PORTABLE on DOS: 08/23/24, CHEST PORTABLE on DOS: 06/22/22 FINDINGS: Lines and Tubes: Enteric tube tip courses below the diaphragm. Lungs: Mild pulmonary vascular congestion Pleura: No effusion. No pneumothorax. Cardiomediastinal contours: Cardiomegaly. Atherosclerotic vascular calcifications of the thoracic aor ta are noted. Bones: No acute osseous abnormality. IMPRESSION: Cardiomegaly with mild pulmonary vascular congestion.
[2024-08-26] MEDS: AMPICILLIN & SULBACTAM SODIUM 3 GM in SODIUM CHL 0.9% 100 ML IV SCH (14:00)
[2024-08-26 16:11] LABS: Urine Bacteria None Seen /hpf (None Seen)
[2024-08-26 16:18] LABS: Urine Blood 2+ /uL (Negative); Urine Clarity Turbid (Clear); Urine Color Yellow (Yellow); Urine Protein, UAD 1+ (Negative); Urine Specific Gravity 1.022 (1.001-1.035); Urine Squamous Epithelial Cell FEW /hpf (<5); Urine Urobilinogen 2 mg/dL (Negative); Urine WBC 6 /HPF (0-3); Urine pH 5.5 (5.0-9.0)
--- NOTE | 2024-08-26 21:46 | DVH ---
EXAM: XY CHEST PORTABLE TECHNIQUE: Single frontal chest radiograph CLINICAL HISTORY: ngt placement COMPARISON: XY CHEST PORTABLE on DOS: 08/26/24, XY CHEST PORTABLE on DOS: 08/23/24, CHEST PORTABLE on D OS: 06/22/22 Findings/Impression: Frontal chest radiograph demonstrates no acute osseous or superficial soft tissue abnormalities. Side port of the enteric tube terminates near the level of the GE junction. Consider advancing 5 cm for more optimal positioning. The trachea is midline. Cardiomegaly. Hyperinflation of the lungs. No pneumothorax, pleural effusions, or consolidations.
[2024-08-27] VITALS (9 sets, daily range): BP systolic 112–128; BP diastolic 70–94; PULSE 58–135; RESP 16–18; TEMP 97–98.4; O2SAT 90–99
[2024-08-27 11:18] LABS: Basophils # (auto) 0 10 ^3/uL (0-0.2); Basophils % (auto) 0.2 % (0.0-2.0); Eosinophils # (auto) 0 10 ^3/uL (0-0.8); Eosinophils % (auto) 0.3 % (0.0-7.0); Hematocrit 42.3 % (41.0-53.0); Hemoglobin 14.1 g/dL (13.5-17.5); Lymphocytes # (auto) 0.6 10 ^3/uL (0.4-5.4); Lymphocytes % (auto) 9.3 % (10.0-50.0); Mean Corpuscular Hemoglobin 32.6 pg (28.0-32.0); Mean Corpuscular Hgb Conc. 33.3 g/dL (32.0-36.0); Mean Corpuscular Volume 97.7 fL (80.0-100.0); Monocytes # (auto) 0.9 10 ^3/uL (0-1.3); Monocytes % (auto) 13.6 % (0.0-12.0); Neutrophils # (auto) 4.9 10 ^3/uL (1.6-8.6); Neutrophils % (auto) 76.6 % (37.0-80.0); Nucleated Red Blood Cells % 0.2 %; Platelet Count (auto) 168 10^3/uL (140-450); Red Blood Cells 4.33 10^6/uL (4.5-5.90); White Blood Cell 6.3 10^3/uL (4.4-10.8)
[2024-08-27 11:27] LABS: Albumin 3.4 g/dL (3.2-4.8); Anion Gap 12 (5-15); Calcium 9.8 mg/dL (8.7-10.4); Carbon Dioxide 23 mmol/L (20-31); Chloride 106 mmol/L (98-107); Potassium 4.7 mmol/L (3.5-5.1); Sodium 141 mmol/L (136-145); Total Protein 6.4 g/dL (5.7-8.2)
[2024-08-27 11:31] LABS: Alanine Aminotransferase 76 U/L (7-40); Alkaline Phosphatase 242 U/L (46-116); Aspartate Aminotransferase 145 U/L (13-40); Blood Urea Nitrogen 38 mg/dL (9-23); Glucose 139 mg/dL (74-106)
--- NOTE | 2024-08-27 12:53 | DVHPN2 ---
Reviewed: Care Plan, H&P, Labs, Medications, Previous Orders, Radiology Changes from previous H/P or p: No Changes Objective Vitals Vital Signs Date Time Temp Pulse Resp B/P (MAP) Pulse Ox O2 Delivery O2 Flow Rate FiO2 08/27/24 10:46 89 112/80 08/27/24 09:00 97.0 17 99 97.0 08/27/24 08:10 Room Air* 0 21 Intake/Output Intake and Output 08/27/24 07:00 Intake Total 700 ml Output Total 50 ml Balance 650 ml Intake Oral 250 ml IV Total 450 ml Output Urine Total 50 ml Medications Current Medications Medications Dose Ordered Sig/Sharri Route Start Time Stop Time Status Last Admin Dose Admin Acetaminophen/ Hydrocodone Bitart 1 tab Q4HP PRN PO 08/19/24 10:30 08/26/24 23:13 1 TAB Ondansetron HCl 4 mg Q4HP PRN IV 08/19/24 10:30 Nitroglycerin 0.4 mg Q5MINP PRN SL 08/19/24 10:30 Morphine Sulfate 2 mg Q30M PRN IV 08/19/24 10:30 Acetaminophen 650 mg Q4HP PRN PO 08/19/24 10:30 08/23/24 20:40 650 MG Atorvastatin Calcium 20 mg HS PO 08/19/24 22:00 08/26/24 22:55 20 MG Pantoprazole Sodium 40 mg DAILY PO 08/20/24 10:00 08/27/24 09:46 40 MG Enteral Nutritional Formula 240 ml TIDWM PO 08/20/24 12:00 UNV Enteral Nutritional Formula 240 ml TIDWMEALS PO 08/20/24 12:00 08/27/24 09:45 240 ML Diagnostic Test (Pha) 1 strip ACHS 08/23/24 11:30 08/27/24 11:41 1 STRIP Insulin Human Regular ACHS SC 08/23/24 11:30 08/26/24 00:36 2 UNITS Dextrose 50 ml UD PRN IV 08/23/24 10:30 Tamsulosin HCl 0.4 mg QPM PO 08/24/24 18:00 08/26/24 17:26 0.4 MG Prednisone 7.5 mg DAILY PO 08/24/24 10:00 08/27/24 09:45 7.5 MG Fluconazole 100 ml @ 100 mls/hr DAILY IV 08/26/24 10:00 08/27/24 09:45 100 MLS/HR Metoprolol Tartrate 25 mg BID PO 08/26/24 10:00 08/27/24 09:46 25 MG Ampicillin Sodium/ Sulbactam Sodium 3 gm/Sodium Chloride 100 ml @ 100 mls/hr Q8HR IV 08/26/24 14:00 08/27/24 05:27 100 MLS/HR Enteral Nutritional Formula 1,000 ml 40ML/HR GT 08/26/24 10:15 Laboratory Results Laboratory Tests 08/27/24 10:58 Chemistry Test 08/27/24 10:58 Albumin 3.4 g/dL (3.2-4.8) Calcium Level 9.8 mg/dL (8.7-10.4) Total Protein 6.4 g/dL (5.7-8.2) LFT Test 08/27/24 10:58 Alanine Aminotransferase (ALT) 76 U/L (7-40) H Alkaline Phosphatase 242 U/L (46-116) H Aspartate Amino Transferase (AST) 145 U/L (13-40) H Total Bilirubin 1.0 mg/dL (0.2-1.0) Urinalysis Test 08/23/24 17:00 08/24/24 02:00 08/26/24 11:00 Urine WBC Clumps Present /hpf (None Seen) Urine Yeast (Budding) Occasional /hpf (None Urine Hyaline Casts Few /lpf (0 - 2) Urine Mucus Few (None Seen) Urine Color Yellow (Yellow) Urine Clarity Turbid (Clear) H Urine pH 5.5 (5.0-9.0) Urine Specific [place] 1.022 (1.001-1.035) Urine Protein 1+ (Negative) H Urine Ketones Negative (Negative) Urine Blood 2+ /uL (Negative) H Urine Nitrite Negative (Negative) Urine Bilirubin Negative (Negative) Urine Urobilinogen 2 mg/dL (Negative) H Urine Leukocyte Esterase Negative /uL (Negative) Urine RBC 22 /hpf (0 - 3) Urine Microscopic WBC 6 /HPF (0-3) H Urine Squamous Epithelial Cells Few /hpf (<5) Urine Bacteria None seen /hpf (None Seen) Urine Glucose Normal mg/dL (Normal) Microbiology Microbiology Date/Time Source Procedure Growth Status 08/23/24 17:00 Voided Urine Urine Culture - Final Complete 08/19/24 11:47 Nose MRSA Screen - Final Complete Labs and/or images reviewed: Labs reviewed by me, Image(s) reviewed by me Assessment/Plan Assessment/Plan Covering for Dr. Moore Acute respiratory failure on oxygen History of AAA status post graft History of AFib status post ablation Lopressor Diabetes insulin sliding scale History of colon cancer mod protein malnutrition: ng tube, tube feedings Recurrent falls History of smoking CKD three UTI urine cultures Unasyn Oral thrush: Fluconazole Time spent 70 minutes Advanced care planning time 20 minutes Patient is full code Continue current management Plan discussed with: Patient Date of Service: Aug 27, 2024 Billing Provider: PATRICIA GOMEZ MD Common Visit Codes: [id number] CARE 30-74 MIN PATRICIA GOMEZ MD Aug 27, 2024 12:53
[2024-08-27] MEDS: METOPROLOL TARTRATE 50 MG TAB PO ONE (16:34)
[2024-08-27 18:13] LABS: Basophils # (auto) 0 10 ^3/uL (0-0.2); Basophils % (auto) 0.2 % (0.0-2.0); Eosinophils # (auto) 0 10 ^3/uL (0-0.8); Eosinophils % (auto) 0.1 % (0.0-7.0); Hematocrit 39.3 % (41.0-53.0); Hemoglobin 13.3 g/dL (13.5-17.5); Lymphocytes # (auto) 0.5 10 ^3/uL (0.4-5.4); Lymphocytes % (auto) 7.1 % (10.0-50.0); Mean Corpuscular Hemoglobin 32.8 pg (28.0-32.0); Mean Corpuscular Hgb Conc. 33.8 g/dL (32.0-36.0); Mean Corpuscular Volume 97.1 fL (80.0-100.0); Monocytes # (auto) 0.9 10 ^3/uL (0-1.3); Monocytes % (auto) 13.1 % (0.0-12.0); Neutrophils # (auto) 5.2 10 ^3/uL (1.6-8.6); Neutrophils % (auto) 79.5 % (37.0-80.0); Nucleated Red Blood Cells % 0.2 %; Platelet Count (auto) 181 10^3/uL (140-450); Red Blood Cells 4.05 10^6/uL (4.5-5.90); Red Cell Distribution Width 15.2 % (11.8-14.3); White Blood Cell 6.6 10^3/uL (4.4-10.8)
[2024-08-27 18:29] LABS: Albumin 3.3 g/dL (3.2-4.8); Anion Gap 10 (5-15); Calcium 9.6 mg/dL (8.7-10.4); Carbon Dioxide 24 mmol/L (20-31); Chloride 105 mmol/L (98-107); Magnesium 1.8 mg/dL (1.6-2.6); Sodium 139 mmol/L (136-145); Total Protein 6.3 g/dL (5.7-8.2)
[2024-08-27 18:30] LABS: Bilirubin, Total 0.9 mg/dL (0.2-1.0)
[2024-08-27 18:31] LABS: Alanine Aminotransferase 87 U/L (7-40); Alkaline Phosphatase 260 U/L (46-116); Aspartate Aminotransferase 189 U/L (13-40); Blood Urea Nitrogen 42 mg/dL (9-23); Glucose 173 mg/dL (74-106)
[2024-08-28] VITALS (8 sets, daily range): BP systolic 109–134; BP diastolic 72–86; PULSE 63–127; RESP 16–20; TEMP 97–98; O2SAT 97–100
--- NOTE | 2024-08-28 08:06 | DVHPN2 ---
Reviewed: Care Plan, H&P, Labs, Medications, Previous Orders, Radiology Changes from previous H/P or p: No Changes Objective Vitals Vital Signs Date Time Temp Pulse Resp B/P (MAP) Pulse Ox O2 Delivery O2 Flow Rate FiO2 08/28/24 05:00 98.0 71 20 130/81 (97) 99 98.0 08/27/24 20:00 Room Air* 0 21 Intake/Output Intake and Output 08/28/24 07:00 Intake Total 880 ml Output Total 850 ml Balance 30 ml Intake Oral 480 ml IV Total 400 ml Output Urine Total 850 ml Medications Current Medications Medications Dose Ordered Sig/Sharri Route Start Time Stop Time Status Last Admin Dose Admin Acetaminophen/ Hydrocodone Bitart 1 tab Q4HP PRN PO 08/19/24 10:30 08/27/24 15:55 1 TAB Ondansetron HCl 4 mg Q4HP PRN IV 08/19/24 10:30 Nitroglycerin 0.4 mg Q5MINP PRN SL 08/19/24 10:30 Morphine Sulfate 2 mg Q30M PRN IV 08/19/24 10:30 Acetaminophen 650 mg Q4HP PRN PO 08/19/24 10:30 08/23/24 20:40 650 MG Atorvastatin Calcium 20 mg HS PO 08/19/24 22:00 08/27/24 22:13 20 MG Pantoprazole Sodium 40 mg DAILY PO 08/20/24 10:00 08/27/24 09:46 40 MG Enteral Nutritional Formula 240 ml TIDWM PO 08/20/24 12:00 UNV Enteral Nutritional Formula 240 ml TIDWMEALS PO 08/20/24 12:00 08/27/24 17:24 240 ML Diagnostic Test (Pha) 1 strip ACHS 08/23/24 11:30 08/28/24 06:20 1 STRIP Insulin Human Regular ACHS SC 08/23/24 11:30 08/28/24 06:22 2 UNITS Dextrose 50 ml UD PRN IV 08/23/24 10:30 Tamsulosin HCl 0.4 mg QPM PO 08/24/24 18:00 08/27/24 16:33 0.4 MG Prednisone 7.5 mg DAILY PO 08/24/24 10:00 08/27/24 09:45 7.5 MG Fluconazole 100 ml @ 100 mls/hr DAILY IV 08/26/24 10:00 08/27/24 09:45 100 MLS/HR Metoprolol Tartrate 25 mg BID PO 08/26/24 10:00 08/27/24 22:13 25 MG Ampicillin Sodium/ Sulbactam Sodium 3 gm/Sodium Chloride 100 ml @ 100 mls/hr Q8HR IV 08/26/24 14:00 08/28/24 05:35 100 MLS/HR Enteral Nutritional Formula 1,000 ml 40ML/HR GT 08/26/24 10:15 Laboratory Results Laboratory Tests 08/27/24 17:52 Chemistry Test 08/27/24 10:58 08/27/24 17:52 Albumin 3.4 g/dL (3.2-4.8) 3.3 g/dL (3.2-4.8) Calcium Level 9.8 mg/dL (8.7-10.4) 9.6 mg/dL (8.7-10.4) Total Protein 6.4 g/dL (5.7-8.2) 6.3 g/dL (5.7-8.2) Magnesium Level 1.8 mg/dL (1.6-2.6) LFT Test 08/27/24 10:58 08/27/24 17:52 Alanine Aminotransferase (ALT) 76 U/L (7-40) H 87 U/L (7-40) H Alkaline Phosphatase 242 U/L (46-116) H 260 U/L (46-116) H Aspartate Amino Transferase (AST) 145 U/L (13-40) H 189 U/L (13-40) H Total Bilirubin 1.0 mg/dL (0.2-1.0) 0.9 mg/dL (0.2-1.0) Urinalysis Test 08/23/24 17:00 08/24/24 02:00 08/26/24 11:00 Urine WBC Clumps Present /hpf (None Seen) Urine Yeast (Budding) Occasional /hpf (None Urine Hyaline Casts Few /lpf (0 - 2) Urine Mucus Few (None Seen) Urine Color Yellow (Yellow) Urine Clarity Turbid (Clear) H Urine pH 5.5 (5.0-9.0) Urine Specific [place] 1.022 (1.001-1.035) Urine Protein 1+ (Negative) H Urine Ketones Negative (Negative) Urine Blood 2+ /uL (Negative) H Urine Nitrite Negative (Negative) Urine Bilirubin Negative (Negative) Urine Urobilinogen 2 mg/dL (Negative) H Urine Leukocyte Esterase Negative /uL (Negative) Urine RBC 22 /hpf (0 - 3) Urine Microscopic WBC 6 /HPF (0-3) H Urine Squamous Epithelial Cells Few /hpf (<5) Urine Bacteria None seen /hpf (None Seen) Urine Glucose Normal mg/dL (Normal) Microbiology Microbiology Date/Time Source Procedure Growth Status 08/23/24 17:00 Voided Urine Urine Culture - Final Complete 08/19/24 11:47 Nose MRSA Screen - Final Complete Labs and/or images reviewed: Labs reviewed by me, Image(s) reviewed by me Assessment/Plan Assessment/Plan Covering for Dr. Moore Acute respiratory failure on oxygen History of AAA status post graft stent placement by Dr. Mera History of AFib status post ablation Lopressor Diabetes insulin sliding scale History of colon cancer mod protein malnutrition: ng tube, tube feedings Recurrent falls History of smoking CKD three UTI urine cultures Unasyn Oral thrush: Fluconazole Time spent 45 minutes Patient is full code Continue current management Plan discussed with: Patient My Orders Orders - PATRICIA GOMEZ MD Procedure Category Date Status Time Apply Barrier Cream CASEY 08/27/24 In Process 10:57 * Dietary Consult CONS 08/27/24 Transmitted 17:07 * Wound Consult CONS 08/27/24 Transmitted Date of Service: Aug 28, 2024 Billing Provider: PATRICIA GOMEZ MD Common Visit Codes: [id number] INP/OBS CARE(HIGH) PATRICIA GOMEZ MD Aug 28, 2024 08:06
[2024-08-28] MEDS: Glucerna 1.2 Cal 1Liter BOTTLE GT SCH (10:00)
[2024-08-28] MEDS: MAGNESIUM SULFATE 1GM/100ML 100 ML IV ONE (17:04)
[2024-08-28] MEDS: METOPROLOL TARTRATE 50 MG TAB PO ONE (17:28)
[2024-08-29] VITALS (12 sets, daily range): BP systolic 105–139; BP diastolic 71–91; PULSE 61–118; RESP 16–22; TEMP 97–99.6; O2SAT 91–100
--- NOTE | 2024-08-29 00:44 | DVH ---
CHEST RADIOGRAPH Indication: ngt placement Technique: Single frontal view of the chest was obtained COMPARISON: XY CHEST PORTABLE on DOS: 08/26/24, XY CHEST PORTABLE on DOS: 08/26/24, XY CHEST PORTABLE o n DOS: 08/23/24, CHEST PORTABLE on DOS: 06/22/22, CXRP on DOS: 06/22/22 FINDINGS: The apices and right lateral costophrenic angle are excluded. Lines and Tubes: Enteric catheter terminates within the left upper quadrant, presumably within the ga stric lumen. Lungs: Visualized portions of the lungs are clear. Pleura: No effusion. No pneumothorax. Cardiomediastinal contours: Unremarkable Bones: Unremarkable IMPRESSION: 1. No acute disease. 2. Apices and right lateral costophrenic angle excluded.
--- NOTE | 2024-08-29 08:40 | DVHPN2 ---
Reviewed: Care Plan, H&P, Labs, Medications, Previous Orders, Radiology Changes from previous H/P or p: No Changes Objective Vitals Vital Signs Date Time Temp Pulse Resp B/P (MAP) Pulse Ox O2 Delivery O2 Flow Rate FiO2 08/29/24 04:53 97.2 104 16 123/87 (99) 100 97.2 08/28/24 20:00 Nasal Cannula* 3 32 Intake/Output Intake and Output 08/29/24 07:00 Intake Total 0 ml Balance 0 ml Intake Oral 0 ml Medications Current Medications Medications Dose Ordered Sig/Sharri Route Start Time Stop Time Status Last Admin Dose Admin Ondansetron HCl 4 mg Q4HP PRN IV 08/19/24 10:30 Nitroglycerin 0.4 mg Q5MINP PRN SL 08/19/24 10:30 Acetaminophen 650 mg Q4HP PRN PO 08/19/24 10:30 08/23/24 20:40 650 MG Atorvastatin Calcium 20 mg HS PO 08/19/24 22:00 08/28/24 22:00 20 MG Enteral Nutritional Formula 240 ml TIDWM PO 08/20/24 12:00 UNV Enteral Nutritional Formula 240 ml TIDWMEALS PO 08/20/24 12:00 08/27/24 17:24 240 ML Diagnostic Test (Pha) 1 strip ACHS 08/23/24 11:30 08/29/24 06:04 1 STRIP Insulin Human Regular ACHS SC 08/23/24 11:30 08/28/24 22:34 2 UNITS Dextrose 50 ml UD PRN IV 08/23/24 10:30 Tamsulosin HCl 0.4 mg QPM PO 08/24/24 18:00 08/27/24 16:33 0.4 MG Prednisone 7.5 mg DAILY PO 08/24/24 10:00 08/28/24 09:50 7.5 MG Fluconazole 100 ml @ 100 mls/hr DAILY IV 08/26/24 10:00 08/28/24 09:12 100 MLS/HR Metoprolol Tartrate 25 mg BID PO 08/26/24 10:00 08/28/24 22:30 25 MG Ampicillin Sodium/ Sulbactam Sodium 3 gm/Sodium Chloride 100 ml @ 100 mls/hr Q8HR IV 08/26/24 14:00 08/28/24 14:11 100 MLS/HR Enteral Nutritional Formula 1,000 ml 40ML/HR GT 08/26/24 10:15 Enteral Nutritional Formula 1,000 ml DAILY GT 08/28/24 10:00 08/28/24 22:39 1,000 ML Pantoprazole Sodium 40 mg DAILY IV 08/29/24 10:00 Metoprolol Tartrate 50 mg BID PO 08/29/24 10:00 Laboratory Results Laboratory Tests 08/27/24 17:52 Urinalysis Test 08/23/24 17:00 08/24/24 02:00 08/26/24 11:00 Urine WBC Clumps Present /hpf (None Seen) Urine Yeast (Budding) Occasional /hpf (None Urine Hyaline Casts Few /lpf (0 - 2) Urine Mucus Few (None Seen) Urine Color Yellow (Yellow) Urine Clarity Turbid (Clear) H Urine pH 5.5 (5.0-9.0) Urine Specific [place] 1.022 (1.001-1.035) Urine Protein 1+ (Negative) H Urine Ketones Negative (Negative) Urine Blood 2+ /uL (Negative) H Urine Nitrite Negative (Negative) Urine Bilirubin Negative (Negative) Urine Urobilinogen 2 mg/dL (Negative) H Urine Leukocyte Esterase Negative /uL (Negative) Urine RBC 22 /hpf (0 - 3) Urine Microscopic WBC 6 /HPF (0-3) H Urine Squamous Epithelial Cells Few /hpf (<5) Urine Bacteria None seen /hpf (None Seen) Urine Glucose Normal mg/dL (Normal) Microbiology Microbiology Date/Time Source Procedure Growth Status 08/23/24 17:00 Voided Urine Urine Culture - Final Complete 08/19/24 11:47 Nose MRSA Screen - Final Complete Labs and/or images reviewed: Labs reviewed by me, Image(s) reviewed by me Assessment/Plan Assessment/Plan Covering for Dr. Moore Acute respiratory failure on oxygen History of AAA status post graft stent placement by Dr. Mera History of AFib status post ablation Lopressor Diabetes insulin sliding scale History of colon cancer Recurrent falls History of smoking CKD three UTI urine cultures Unasyn Oral thrush: Fluconazole Cachexia Nutrition NG tube feeding Time spent 45 minutes Patient is full code Continue current management Plan discussed with: Patient My Orders Orders - PATRICIA GOMEZ MD Procedure Category Date Status Time Notify Provider NOTICE 08/28/24 Transmitted Malnutrition 09:32 Increase Calorie NOURISH 08/28/24 Transmitted Intake 09:32 Nutritional PHA 08/28/24 In Process Supplements (Glucerna 10:00 * Swallow Request ST 08/28/24 Transmitted 11:16 Pantoprazole PHA 08/29/24 In Process (Protonix) 10:00 Chest Xray 1 View XY 08/28/24 Resulted 21:57 Date of Service: Aug 29, 2024 Billing Provider: PATRICIA GOMEZ MD Common Visit Codes: [id number] INP/OBS CARE(HIGH) PATRICIA GOMEZ MD Aug 29, 2024 08:40
[2024-08-29] MEDS: METOPROLOL TARTRATE 50 MG TAB PO SCH (10:43)
[2024-08-29] MEDS: PANTOPRAZOLE 40 MG/10 ML VIAL INJ IV SCH (10:45)
--- NOTE | 2024-08-29 12:07 | ECG ---
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
[2024-08-29 14:29] LABS: Base Excess 2.4 mmol/L (-2.0-3.0)
[2024-08-29] MEDS: ALBUTEROL SULF 2.5 MG/0.5ML(0.5%) NEB SOLN NEB PRN (14:37)
[2024-08-29] MEDS: IPRATROPIUM BROM 0.5 MG/2.5ML INH SOL NEB PRN (14:37)
[2024-08-30 01:00] VITALS: BP 134/89; PULSE 89; RESP 20; TEMP 98.3; O2SAT 95
[2024-08-30 05:00] VITALS: BP 155/83; PULSE 97; RESP 20; TEMP 98.2; O2SAT 95
[2024-08-30 05:57] VITALS: O2SAT 96
[2024-08-30 08:00] VITALS: PULSE 112; PULSE 140; RESP 20; O2SAT 96
--- NOTE | 2024-08-30 08:40 | ECG ---
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
[2024-08-30 08:55] LABS: Basophils # (auto) 0.1 10 ^3/uL (0-0.2); Basophils % (auto) 0.5 % (0.0-2.0); Eosinophils # (auto) 0 10 ^3/uL (0-0.8); Eosinophils % (auto) 0.2 % (0.0-7.0); Hematocrit 40.2 % (41.0-53.0); Hemoglobin 13.9 g/dL (13.5-17.5); Lymphocytes # (auto) 0.9 10 ^3/uL (0.4-5.4); Lymphocytes % (auto) 8.5 % (10.0-50.0); Mean Corpuscular Hemoglobin 33.7 pg (28.0-32.0); Mean Corpuscular Hgb Conc. 34.6 g/dL (32.0-36.0); Mean Corpuscular Volume 97.4 fL (80.0-100.0); Monocytes # (auto) 1.2 10 ^3/uL (0-1.3); Monocytes % (auto) 11.7 % (0.0-12.0); Neutrophils # (auto) 8.4 10 ^3/uL (1.6-8.6); Neutrophils % (auto) 79.1 % (37.0-80.0); Nucleated Red Blood Cells % 0.1 %; Platelet Count (auto) 231 10^3/uL (140-450); Red Blood Cells 4.13 10^6/uL (4.5-5.90); Red Cell Distribution Width 15.2 % (11.8-14.3); White Blood Cell 10.6 10^3/uL (4.4-10.8)
[2024-08-30] MEDS: AMIODARONE BOLUS KIT 100 ML IV ONE (08:58)
[2024-08-30 09:00] VITALS: BP 127/81; PULSE 116; RESP 30; TEMP 98.2; O2SAT 96
[2024-08-30 09:00] LABS: Base Excess 2.3 mmol/L (-2.0-3.0)
[2024-08-30] MEDS: AMIODARONE 360mg/200mL PREMIX 200 ML IV ONE (09:09)
[2024-08-30 09:12] LABS: Albumin 3.6 g/dL (3.2-4.8); Anion Gap 9 (5-15); BUN/Creatinine Ratio 31.8 (10.0-20.0); Calcium 9.8 mg/dL (8.7-10.4); Carbon Dioxide 26 mmol/L (20-31); Magnesium 2.1 mg/dL (1.6-2.6); Potassium 4.8 mmol/L (3.5-5.1); Sodium 145 mmol/L (136-145); Total Protein 6.7 g/dL (5.7-8.2)
[2024-08-30 09:13] LABS: Alanine Aminotransferase 80 U/L (7-40); Alkaline Phosphatase 297 U/L (46-116); Aspartate Aminotransferase 111 U/L (13-40); Bilirubin, Total 1.2 mg/dL (0.2-1.0); Blood Urea Nitrogen 41 mg/dL (9-23); Chloride 110 mmol/L (98-107); Glucose 116 mg/dL (74-106)
--- NOTE | 2024-08-30 09:16 | DVH ---
EXAM: XY CHEST PORTABLE Indication: SHORTNESS OF BREATH Technique: Single frontal view of the chest was obtained Comparison: XY CHEST XRAY 1 VIEW on DOS: 08/29/24, XY CHEST PORTABLE on DOS: 08/26/24, XY CHEST PORTABL E on DOS: 08/26/24, XY CHEST PORTABLE on DOS: 08/23/24, CHEST PORTABLE on DOS: 06/22/22 FINDINGS: Lines and Tubes: Enteric tube tip projects over the expected region of the stomach. Lungs: Left retrocardiac opacity. Pleura: Trace left pleural effusion. No pneumothorax. Cardiomediastinal contours: Cardiomegaly. Atherosclerotic vascular calcifications of the thoracic ao rta are noted. Bones: No acute osseous abnormality. IMPRESSION: Cardiomegaly with pulmonary edema and trace left pleural effusion. Left retrocardiac opacity.
[2024-08-30 10:00] VITALS: O2SAT 98
--- NOTE | 2024-08-30 10:38 | DVHDS2 ---
Discharge Summary Date of Admission Aug 19, 2024 at 10:19 Date of Discharge: Aug 30, 2024 Admitting Diagnosis resp failure Labs/Diagnostic Data: Laboratory Results Test 08/30/24 08:54 08/30/24 08:38 08/30/24 06:17 08/27/24 21:35 Blood Gas Specimen Type Arterial Blood Gas Sample Site Right radial Blood Gas Patient Temperature 37.0 Arterial Blood Date Drawn [id number] Arterial Blood pH 7.515 (7.350-7.450) Arterial Blood Partial Pressure CO2 31.0 mmHg (35.0-48.0) Arterial Blood Partial Pressure O2 85.4 mmHg (83.0-108.0) Arterial Blood HCO3 24.5 mmol/L (21.0-28.0) Arterial Blood Oxygen Saturation 96.3 % (94.0-98.0) Arterial Blood Base Excess 2.3 mmol/L (-2.0-3.0) Arterial Blood Oxyhemoglobin 95.7 % (94.0-98.0) Arterial Blood Carboxyhemoglobin 0.1 % (0.5-1.5) Arterial Blood Methemoglobin 0.5 % (0.0-1.5) Davion Test Yes Blood Gas Total Hemoglobin 14.50 g/dL (13.5-17.5) Blood Gas Liter Flow 15.00 Blood Gas Modality Mask - nrb FiO2 % 100.0 White Blood Count 10.6 10^3/uL (4.4-10.8) Red Blood Count 4.13 10^6/uL (4.5-5.90) Hemoglobin 13.9 g/dL (13.5-17.5) Hematocrit 40.2 % (41.0-53.0) Mean Corpuscular Volume 97.4 fL (80.0-100.0) Mean Corpuscular Hemoglobin 33.7 pg (28.0-32.0) Mean Corpuscular Hemoglobin Concent 34.6 g/dL (32.0-36.0) Red Cell Distribution Width 15.2 % (11.8-14.3) Platelet Count 231 10^3/uL (140-450) Mean Platelet Volume 9.3 fL (6.9-10.8) Neutrophils (%) (Auto) 79.1 % (37.0-80.0) Lymphocytes (%) (Auto) 8.5 % (10.0-50.0) Monocytes (%) (Auto) 11.7 % (0.0-12.0) Eosinophils (%) (Auto) 0.2 % (0.0-7.0) Basophils (%) (Auto) 0.5 % (0.0-2.0) Neutrophils # (Auto) 8.4 10 ^3/uL (1.6-8.6) Lymphocytes # (Auto) 0.9 10 ^3/uL (0.4-5.4) Monocytes # (Auto) 1.2 10 ^3/uL (0-1.3) Eosinophils # (Auto) 0 10 ^3/uL (0-0.8) Basophils # (Auto) 0.1 10 ^3/uL (0-0.2) Nucleated Red Blood Cells 0.1 % Sodium Level 145 mmol/L (136-145) Potassium Level 4.8 mmol/L (3.5-5.1) Chloride Level 110 mmol/L (98-107) Carbon Dioxide Level 26 mmol/L (20-31) Anion Gap 9 (5-15) Blood Urea Nitrogen 41 mg/dL (9-23) Creatinine 1.29 mg/dL (0.700-1.30) Glomerular Filtration Rate Calc 57 mL/min (>90) BUN/Creatinine Ratio 31.8 (10.0-20.0) Serum Glucose 116 mg/dL (74-106) Lactic Acid Level 1.9 mmol/L (0.4-2.0) Calcium Level 9.8 mg/dL (8.7-10.4) Magnesium Level 2.1 mg/dL (1.6-2.6) Total Bilirubin 1.2 mg/dL (0.2-1.0) Aspartate Amino Transferase (AST) 111 U/L (13-40) Alanine Aminotransferase (ALT) 80 U/L (7-40) Alkaline Phosphatase 297 U/L (46-116) Total Protein 6.7 g/dL (5.7-8.2) Albumin 3.6 g/dL (3.2-4.8) POC Glucose 144 mg/dl (70-106) Troponin I High Sensitivity 103 ng/L (</=54) Test 08/26/24 11:00 08/24/24 06:03 08/24/24 02:00 08/23/24 17:00 Urine Color Yellow (Yellow) Urine Clarity Turbid (Clear) Urine pH 5.5 (5.0-9.0) Urine Specific [place] 1.022 (1.001-1.035) Urine Protein 1+ (Negative) Urine Ketones Negative (Negative) Urine Blood 2+ /uL (Negative) Urine Nitrite Negative (Negative) Urine Bilirubin Negative (Negative) Urine Urobilinogen 2 mg/dL (Negative) Urine Leukocyte Esterase Negative /uL (Negative) Urine RBC 22 /hpf (0 - 3) Urine Microscopic WBC 6 /HPF (0-3) Urine Squamous Epithelial Cells Few /hpf (<5) Urine Bacteria None seen /hpf (None Seen) Urine Glucose Normal mg/dL (Normal) Hemoglobin A1c 6.1 % A1C (<5.7) Thyroid Stimulating Hormone (TSH) 4.09 uIU/mL (0.55-4.78) Digoxin Level 2.17 ng/mL (0.8-2) Urine Hyaline Casts Few /lpf (0 - 2) Urine Mucus Few (None Seen) Urine WBC Clumps Present /hpf (None Seen) Urine Yeast (Budding) Occasional /hpf (None Test 08/23/24 11:25 08/17/24 12:20 Carcinoembryonic Antigen 2.33 ng/mL (<=5.0) Prothrombin Time 16.3 sec (9.3-11.8) Prothrombin Time INR 1.61 (0.9-1.15) Activated Partial Thromboplast Time 30.8 SEC (24.5-34.5) Other Laboratory Tests 08/30/24 08:38 Brief Hx & Hospital Course: see dictated note Condition at Discharge: Poor Final Diagnosis/Problems List resp failure Discharge Disposition: Hospice- Medical Facility Discharge Instruct/Medications Diet: See Comment Diet comment: npo Activity: No Restrictions, As Tolerated Medications: per hospice Discharge Statement: "Patient was advised to return to the ER or call 911 if any headaches, dizziness, shortness of breath, chest pain, abdominal pain, bleeding, fevers, or worsening of medical condition. Patient was counseled about treatment plan, medications, possible side effects, patientverbalized understanding. All questions were answered to the best of my ability. This discharge took greater then 30 minutes in planning, reviewing documentation, counseling the patient, and discussing with other team members." ASSESSMENT ASSESSMENT Assessment resp failure Date of Service: Aug 30, 2024 Billing Provider: TESSA THAO MD Common Visit Codes: [id number] DISCH DAY >30min Secondary Visit Codes: [id number] CARE PLAN 30 MINUTES TESSA THAO MD Aug 30, 2024 10:38
[2024-08-30] MEDS: FUROSEMIDE 20 MG/2 ML VIAL IV ONE (10:45)
--- NOTE | 2024-08-30 11:01 | DVHDS ---
DATE OF DISCHARGE: 08/30/2024 HISTORY OF PRESENT ILLNESS: The patient is a 79-year-old gentleman who was admitted with a history of aortic aneurysm and aortic graft placement. The patient has a history of hypertension, coronary artery disease, hyperlipidemia, tobacco abuse, diabetes, congestive heart failure and atrial fibrillation. HOSPITAL COURSE: Post-procedure, the patient had congestive heart failure with atrial fibrillation. The patient had pneumonia, likely secondary to aspiration and was placed on IV antibiotics. The patient had difficulty in swallowing. The patient also in view of multiple falls had back pain. The patient had a thoracic spine x-ray that showed no acute abnormality. Subsequent chest x-rays showed congestive heart failure. Urine culture was contaminated. The patient at this time is doing poorly, requiring high levels of oxygen as well as atrial fibrillation with rapid ventricular rate. I discussed with his brother who wishes him to be on Hospice care. The patient will be discharged in hospice once arrangements have been made. FINAL DIAGNOSES: Therefore, * Acute respiratory failure. * Aortic aneurysm, status post stent placement. * Atrial fibrillation with hypercoagulable state with rapid ventricular rate. * Diabetes mellitus. * History of colon cancer. * Moderate protein malnutrition. * History of multiple falls. * Likely chronic obstructive pulmonary disease. * Chronic kidney disease, stage 3A. * Autoimmune polyneuropathy. * Likely aspiration pneumonia. * Hospice care. Time spent in discharge planning including discussion with family was 39 minutes. Advance care planning time including hospice discussion was 21 minutes. MD AZAEL Wade/ALETHA TID: [id number] RECEIPT: [id number]
[2024-08-30] MEDS: methylPREDNISolone SOD SUCC 40 MG/ML VL IV ONE (14:09)
[2024-08-30] MEDS: AMIODARONE 360mg/200mL PREMIX 200 ML IV SCH (15:35)
[2024-08-30] MEDS ORDERED: methylPREDNISolone SOD SUCC 40 MG/ML VL IV SCH (22:00)
--- NOTE | 2024-09-02 13:51 | DVHPN2 ---
Progress Note - Dictate Date Seen: Aug 22, 2024 Medical Necessity Reason Pt with a Central, PICC or Fol: Yes The following are medically ne: Steward Catheter Reason for steward catheter: Strict I&O Subjective PT WITH HTN PAD CAD AAA S/P GORE STENT GRAFT IMPLANTATION LAURIE AFIB HYPERCOAGULABLE STATE medications Current Medications Medications Dose Ordered Sig/Sharri Route Start Time Stop Time Status Last Admin Dose Admin Enteral Nutritional Formula 240 ml TIDWM PO 08/20/24 12:00 UNV objective HEENT: Pupils are reactive. Funduscopic exam shows no AV nicking, no exudates, no papilledema. NECK: No cervical adenopathy, no supraclavicular adenopathy. PULMONARY: Clear to auscultation. CARDIOVASCULAR: Irregularly-irregular. ABDOMEN: Nontender. No epigastric tenderness. Stool guaiac is negative. laboratory and microbiology Laboratory Tests 08/30/24 08:38 Test 08/30/24 08:38 Range/Units Serum Glucose 116 H 74-106 mg/dL Problem List HTN PAD CAD AAA S/P GORE STENT GRAFT IMPLANTATION LAURIE AFIB HYPERCOAGULABLE STATE Assessment/Plan AMBULATE HOLD ALL ANTICOAGULANTS. 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 Flush with 150 mL free H2O Q6H. Goal rate will provide 1584 kcals, 79g Pro, and 1550 mL free H2O (including flushes) per 24 hrs. Goal rate will meet ~ 89% estimated daily energy needs and ~ 96% estimated daily protein needs 2) Consider vitamin C @ 500 mg bid and zinc sulfate @ 220 mg qd for 7-10 days 3) Advance to 60g CCHO diet when medically feasible, pending GUN STOCKER approval. Encourage optimal PO intake. Continue Glucerna tid as previously ordered. 4) Continue to monitor I&O, labs, and skin integrity 5) Refer to outpatient RD to support sustained weight gain Expected Outcomes/Goals: 1) TF rate to meet at least 75% estimated daily needs 2) labs and wound to improve 3) diet to advance; appetite to improve 4) f/u in 2-3 days Plan discussed with: Patient, Other CHECO ARAUJO MD Sep 02, 2024 13:51
--- NOTE | 2024-09-02 13:52 | DVHPN2 ---
Progress Note - Dictate Date Seen: Aug 21, 2024 Medical Necessity Reason Pt with a Central, PICC or Fol: Yes The following are medically ne: Steward Catheter Reason for steward catheter: Strict I&O Subjective PT WITH HTN PAD CAD AAA S/P GORE STENT GRAFT IMPLANTATION LAURIE AFIB HYPERCOAGULABLE STATE medications Current Medications Medications Dose Ordered Sig/Sharri Route Start Time Stop Time Status Last Admin Dose Admin Enteral Nutritional Formula 240 ml TIDWM PO 08/20/24 12:00 UNV objective HEENT: Pupils are reactive. Funduscopic exam shows no AV nicking, no exudates, no papilledema. NECK: No cervical adenopathy, no supraclavicular adenopathy. PULMONARY: Clear to auscultation. CARDIOVASCULAR: Irregularly-irregular. ABDOMEN: Nontender. No epigastric tenderness. Stool guaiac is negative. laboratory and microbiology Laboratory Tests 08/30/24 08:38 Test 08/30/24 08:38 Range/Units Serum Glucose 116 H 74-106 mg/dL Problem List HTN PAD CAD AAA S/P GORE STENT GRAFT IMPLANTATION LAURIE AFIB HYPERCOAGULABLE STATE Assessment/Plan AMBULATE HOLD ALL ANTICOAGULANTS. 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 Flush with 150 mL free H2O Q6H. Goal rate will provide 1584 kcals, 79g Pro, and 1550 mL free H2O (including flushes) per 24 hrs. Goal rate will meet ~ 89% estimated daily energy needs and ~ 96% estimated daily protein needs 2) Consider vitamin C @ 500 mg bid and zinc sulfate @ 220 mg qd for 7-10 days 3) Advance to 60g CCHO diet when medically feasible, pending PROCESS COORDINATOR approval. Encourage optimal PO intake. Continue Glucerna tid as previously ordered. 4) Continue to monitor I&O, labs, and skin integrity 5) Refer to outpatient RD to support sustained weight gain Expected Outcomes/Goals: 1) TF rate to meet at least 75% estimated daily needs 2) labs and wound to improve 3) diet to advance; appetite to improve 4) f/u in 2-3 days Plan discussed with: Patient CHECO ARAUJO MD Sep 02, 2024 13:52
--- NOTE | 2024-09-02 13:54 | DVHPN2 ---
Progress Note - Dictate Date Seen: Aug 24, 2024 Medical Necessity Reason Pt with a Central, PICC or Fol: Yes The following are medically ne: Steward Catheter Reason for steward catheter: Strict I&O Subjective PT WITH HTN PAD CAD AAA S/P GORE STENT GRAFT IMPLANTATION LAURIE AFIB HYPERCOAGULABLE STATE medications Current Medications Medications Dose Ordered Sig/Sharri Route Start Time Stop Time Status Last Admin Dose Admin Enteral Nutritional Formula 240 ml TIDWM PO 08/20/24 12:00 UNV objective HEENT: Pupils are reactive. Funduscopic exam shows no AV nicking, no exudates, no papilledema. NECK: No cervical adenopathy, no supraclavicular adenopathy. PULMONARY: Clear to auscultation. CARDIOVASCULAR: Irregularly-irregular. ABDOMEN: Nontender. No epigastric tenderness. Stool guaiac is negative. laboratory and microbiology Laboratory Tests 08/30/24 08:38 Test 08/30/24 08:38 Range/Units Serum Glucose 116 H 74-106 mg/dL Problem List HTN PAD CAD AAA S/P GORE STENT GRAFT IMPLANTATION LAURIE AFIB HYPERCOAGULABLE STATE Assessment/Plan AMBULATE HOLD ALL ANTICOAGULANTS. 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 Flush with 150 mL free H2O Q6H. Goal rate will provide 1584 kcals, 79g Pro, and 1550 mL free H2O (including flushes) per 24 hrs. Goal rate will meet ~ 89% estimated daily energy needs and ~ 96% estimated daily protein needs 2) Consider vitamin C @ 500 mg bid and zinc sulfate @ 220 mg qd for 7-10 days 3) Advance to 60g CCHO diet when medically feasible, pending CLUB LICENSEE approval. Encourage optimal PO intake. Continue Glucerna tid as previously ordered. 4) Continue to monitor I&O, labs, and skin integrity 5) Refer to outpatient RD to support sustained weight gain Expected Outcomes/Goals: 1) TF rate to meet at least 75% estimated daily needs 2) labs and wound to improve 3) diet to advance; appetite to improve 4) f/u in 2-3 days Plan discussed with: Patient, Other CHECO ARAUJO MD Sep 02, 2024 13:54
--- NOTE | 2024-09-02 13:55 | DVHPN2 ---
Progress Note - Dictate Date Seen: Aug 27, 2027 Medical Necessity Reason Pt with a Central, PICC or Fol: Yes The following are medically ne: Steward Catheter Reason for steward catheter: Strict I&O Subjective PT WITH HTN PAD CAD AAA S/P GORE STENT GRAFT IMPLANTATION LAURIE AFIB HYPERCOAGULABLE STATE medications Current Medications Medications Dose Ordered Sig/Sharri Route Start Time Stop Time Status Last Admin Dose Admin Enteral Nutritional Formula 240 ml TIDWM PO 08/20/24 12:00 UNV objective HEENT: Pupils are reactive. Funduscopic exam shows no AV nicking, no exudates, no papilledema. NECK: No cervical adenopathy, no supraclavicular adenopathy. PULMONARY: Clear to auscultation. CARDIOVASCULAR: Irregularly-irregular. ABDOMEN: Nontender. No epigastric tenderness. Stool guaiac is negative. laboratory and microbiology Laboratory Tests 08/30/24 08:38 Test 08/30/24 08:38 Range/Units Serum Glucose 116 H 74-106 mg/dL Problem List HTN PAD CAD AAA S/P GORE STENT GRAFT IMPLANTATION LAURIE AFIB HYPERCOAGULABLE STATE Assessment/Plan AMBULATE HOLD ALL ANTICOAGULANTS. 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 Flush with 150 mL free H2O Q6H. Goal rate will provide 1584 kcals, 79g Pro, and 1550 mL free H2O (including flushes) per 24 hrs. Goal rate will meet ~ 89% estimated daily energy needs and ~ 96% estimated daily protein needs 2) Consider vitamin C @ 500 mg bid and zinc sulfate @ 220 mg qd for 7-10 days 3) Advance to 60g CCHO diet when medically feasible, pending VOLUNTEER SPECIALIST approval. Encourage optimal PO intake. Continue Glucerna tid as previously ordered. 4) Continue to monitor I&O, labs, and skin integrity 5) Refer to outpatient RD to support sustained weight gain Expected Outcomes/Goals: 1) TF rate to meet at least 75% estimated daily needs 2) labs and wound to improve 3) diet to advance; appetite to improve 4) f/u in 2-3 days ARUNASALAM,CHECO MD Sep 02, 2024 13:55
--- NOTE | 2024-09-02 13:55 | DVHPN2 ---
Progress Note - Dictate Date Seen: Aug 25, 2024 Medical Necessity Reason Pt with a Central, PICC or Fol: Yes The following are medically ne: Steward Catheter Reason for steward catheter: Strict I&O Subjective PT WITH HTN PAD CAD AAA S/P GORE STENT GRAFT IMPLANTATION LAURIE AFIB HYPERCOAGULABLE STATE medications Current Medications Medications Dose Ordered Sig/Sharri Route Start Time Stop Time Status Last Admin Dose Admin Enteral Nutritional Formula 240 ml TIDWM PO 08/20/24 12:00 UNV objective HEENT: Pupils are reactive. Funduscopic exam shows no AV nicking, no exudates, no papilledema. NECK: No cervical adenopathy, no supraclavicular adenopathy. PULMONARY: Clear to auscultation. CARDIOVASCULAR: Irregularly-irregular. ABDOMEN: Nontender. No epigastric tenderness. Stool guaiac is negative. laboratory and microbiology Laboratory Tests 08/30/24 08:38 Test 08/30/24 08:38 Range/Units Serum Glucose 116 H 74-106 mg/dL Problem List HTN PAD CAD AAA S/P GORE STENT GRAFT IMPLANTATION LAURIE AFIB HYPERCOAGULABLE STATE Assessment/Plan AMBULATE HOLD ALL ANTICOAGULANTS. 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 Flush with 150 mL free H2O Q6H. Goal rate will provide 1584 kcals, 79g Pro, and 1550 mL free H2O (including flushes) per 24 hrs. Goal rate will meet ~ 89% estimated daily energy needs and ~ 96% estimated daily protein needs 2) Consider vitamin C @ 500 mg bid and zinc sulfate @ 220 mg qd for 7-10 days 3) Advance to 60g CCHO diet when medically feasible, pending MIDDLE SCHOOL TUTOR approval. Encourage optimal PO intake. Continue Glucerna tid as previously ordered. 4) Continue to monitor I&O, labs, and skin integrity 5) Refer to outpatient RD to support sustained weight gain Expected Outcomes/Goals: 1) TF rate to meet at least 75% estimated daily needs 2) labs and wound to improve 3) diet to advance; appetite to improve 4) f/u in 2-3 days Plan discussed with: Patient CHECO ARAUJO MD Sep 02, 2024 13:55
--- NOTE | 2024-09-02 13:57 | DVHPN2 ---
Progress Note - Dictate Date Seen: Aug 27, 2024 Medical Necessity Reason Pt with a Central, PICC or Fol: Yes The following are medically ne: Steward Catheter Reason for steward catheter: Strict I&O Subjective PT WITH HTN PAD CAD AAA S/P GORE STENT GRAFT IMPLANTATION LAURIE AFIB HYPERCOAGULABLE STATE medications Current Medications Medications Dose Ordered Sig/Sharri Route Start Time Stop Time Status Last Admin Dose Admin Enteral Nutritional Formula 240 ml TIDWM PO 08/20/24 12:00 UNV objective HEENT: Pupils are reactive. Funduscopic exam shows no AV nicking, no exudates, no papilledema. NECK: No cervical adenopathy, no supraclavicular adenopathy. PULMONARY: Clear to auscultation. CARDIOVASCULAR: Irregularly-irregular. ABDOMEN: Nontender. No epigastric tenderness. Stool guaiac is negative. laboratory and microbiology Laboratory Tests 08/30/24 08:38 Test 08/30/24 08:38 Range/Units Serum Glucose 116 H 74-106 mg/dL Problem List HTN PAD CAD AAA S/P GORE STENT GRAFT IMPLANTATION LAURIE AFIB HYPERCOAGULABLE STATE Assessment/Plan AMBULATE HOLD ALL ANTICOAGULANTS. 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 Flush with 150 mL free H2O Q6H. Goal rate will provide 1584 kcals, 79g Pro, and 1550 mL free H2O (including flushes) per 24 hrs. Goal rate will meet ~ 89% estimated daily energy needs and ~ 96% estimated daily protein needs 2) Consider vitamin C @ 500 mg bid and zinc sulfate @ 220 mg qd for 7-10 days 3) Advance to 60g CCHO diet when medically feasible, pending OFFICE TECHNOLOGIST approval. Encourage optimal PO intake. Continue Glucerna tid as previously ordered. 4) Continue to monitor I&O, labs, and skin integrity 5) Refer to outpatient RD to support sustained weight gain Expected Outcomes/Goals: 1) TF rate to meet at least 75% estimated daily needs 2) labs and wound to improve 3) diet to advance; appetite to improve 4) f/u in 2-3 days Plan discussed with: Patient CHECO ARAUJO MD Sep 02, 2024 13:57
--- NOTE | 2024-09-02 13:58 | DVHPN2 ---
Progress Note - Dictate Date Seen: Aug 28, 2024 Medical Necessity Reason Pt with a Central, PICC or Fol: Yes The following are medically ne: Steward Catheter Reason for steward catheter: Strict I&O Subjective PT WITH HTN PAD CAD AAA S/P GORE STENT GRAFT IMPLANTATION LAURIE AFIB HYPERCOAGULABLE STATE medications Current Medications Medications Dose Ordered Sig/Sharri Route Start Time Stop Time Status Last Admin Dose Admin Enteral Nutritional Formula 240 ml TIDWM PO 08/20/24 12:00 UNV objective HEENT: Pupils are reactive. Funduscopic exam shows no AV nicking, no exudates, no papilledema. NECK: No cervical adenopathy, no supraclavicular adenopathy. PULMONARY: Clear to auscultation. CARDIOVASCULAR: Irregularly-irregular. ABDOMEN: Nontender. No epigastric tenderness. Stool guaiac is negative. laboratory and microbiology Laboratory Tests 08/30/24 08:38 Test 08/30/24 08:38 Range/Units Serum Glucose 116 H 74-106 mg/dL Problem List HTN PAD CAD AAA S/P GORE STENT GRAFT IMPLANTATION LAURIE AFIB HYPERCOAGULABLE STATE Assessment/Plan AMBULATE HOLD ALL ANTICOAGULANTS. 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 Flush with 150 mL free H2O Q6H. Goal rate will provide 1584 kcals, 79g Pro, and 1550 mL free H2O (including flushes) per 24 hrs. Goal rate will meet ~ 89% estimated daily energy needs and ~ 96% estimated daily protein needs 2) Consider vitamin C @ 500 mg bid and zinc sulfate @ 220 mg qd for 7-10 days 3) Advance to 60g CCHO diet when medically feasible, pending RESIDENTIAL SALES REP approval. Encourage optimal PO intake. Continue Glucerna tid as previously ordered. 4) Continue to monitor I&O, labs, and skin integrity 5) Refer to outpatient RD to support sustained weight gain Expected Outcomes/Goals: 1) TF rate to meet at least 75% estimated daily needs 2) labs and wound to improve 3) diet to advance; appetite to improve 4) f/u in 2-3 days Plan discussed with: Patient CHECO ARAUJO MD Sep 02, 2024 13:57
--- NOTE | 2024-09-02 13:59 | DVHPN2 ---
Progress Note - Dictate Date Seen: Aug 29, 2024 Medical Necessity Reason Pt with a Central, PICC or Fol: Yes The following are medically ne: Steward Catheter Reason for steward catheter: Strict I&O Subjective PT WITH HTN PAD CAD AAA S/P GORE STENT GRAFT IMPLANTATION LAURIE AFIB HYPERCOAGULABLE STATE medications Current Medications Medications Dose Ordered Sig/Sharri Route Start Time Stop Time Status Last Admin Dose Admin Enteral Nutritional Formula 240 ml TIDWM PO 08/20/24 12:00 UNV objective HEENT: Pupils are reactive. Funduscopic exam shows no AV nicking, no exudates, no papilledema. NECK: No cervical adenopathy, no supraclavicular adenopathy. PULMONARY: Clear to auscultation. CARDIOVASCULAR: Irregularly-irregular. ABDOMEN: Nontender. No epigastric tenderness. Stool guaiac is negative. laboratory and microbiology Laboratory Tests 08/30/24 08:38 Test 08/30/24 08:38 Range/Units Serum Glucose 116 H 74-106 mg/dL Problem List HTN PAD CAD AAA S/P GORE STENT GRAFT IMPLANTATION LAURIE AFIB HYPERCOAGULABLE STATE Assessment/Plan AMBULATE HOLD ALL ANTICOAGULANTS. 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 Flush with 150 mL free H2O Q6H. Goal rate will provide 1584 kcals, 79g Pro, and 1550 mL free H2O (including flushes) per 24 hrs. Goal rate will meet ~ 89% estimated daily energy needs and ~ 96% estimated daily protein needs 2) Consider vitamin C @ 500 mg bid and zinc sulfate @ 220 mg qd for 7-10 days 3) Advance to 60g CCHO diet when medically feasible, pending HAND PROFILER approval. Encourage optimal PO intake. Continue Glucerna tid as previously ordered. 4) Continue to monitor I&O, labs, and skin integrity 5) Refer to outpatient RD to support sustained weight gain Expected Outcomes/Goals: 1) TF rate to meet at least 75% estimated daily needs 2) labs and wound to improve 3) diet to advance; appetite to improve 4) f/u in 2-3 days Plan discussed with: Patient CHECO ARAUJO MD Sep 02, 2024 13:58
--- NOTE | 2024-09-03 09:12 | DVHSR ---
APPROVED REPORT EXAM: Two-dimensional and M-mode echocardiogram with Doppler and color Doppler. Blood Pressure: 133/82 mmHg INDICATION Atrial Fibrillation RISK FACTORS Height: 6'2", Weight: 128 DIMENSIONS LVDd4.5 (3.8-5.7cm)LA (2D)4.5 (1.9-4.0cm)Aortic Root4.4 (2.0-3.7cm) LVDs3.3 (2.5-4.0cm)LA (MM) (1.9-4.0cm)Aortic Cusp Exc1.9 (1.5-2.0cm) EF (%) 50.0 (55-70%)Rt. Atrium4.8 (1.9-4.0cm)Asc. Aorta cm IVSd1.5 (0.7-1.1cm)RV (D)4.0 (1.8-2.4cm) PWd1.3 (0.7-1.1cm) Mitral Valve MitralMitral Stenosis E wave0.86m/sMV Mean GR.mmHg E/A ratio0.02D MVAcm2 Aortic Valve Aortic ValveAortic Stenosis V10.94m/Karel Mean GR.5mmHg V21.73m/Karel Peak GR.12mmHg LVOT Diameter2.0 (1.8-2.4cm)Doppler AVA1.71cm2 Pulmonic Valve V20.71m/s Tricuspid Valve TR Velocity2.98m/s [id number] Other Information Technically limited study due to body habitus, patient lying flat. Conclusion CONC LVH EF <45% BICUSPID AV MILD MAC LAE DOMINIQUE AORTIC ROOT DILATATION
== END 2024-08-30 16:14 | disposition hospice, home (50) | DRG 268 ==
LOC: CATH 06:56 → OVERFLOW 10:19 → ICU WEST 11:11 → TELE-CENTR 08-20 11:59
PROVIDERS: ADMIT Internal Medicine; ATTEND Internal Medicine
PROC: 04V03DZ Restriction of Abdominal Aorta with Intraluminal Device, Percutaneous Approach (ICD-10-PCS; principal; 2024-08-19)
PROC: B44LZZ3 Ultrasonography of Femoral Artery, Intravascular (ICD-10-PCS; 2024-08-19)
PROC: 0D9670Z Drainage of Stomach with Drainage Device, Via Natural or Artificial Opening (ICD-10-PCS; 2024-08-19)
DX: I71.40 Abdominal aortic aneurysm, without rupture, unspecified (principal); J69.0 Pneumonitis due to inhalation of food and vomit; J96.00 Acute respiratory failure, unspecified whether with hypoxia or hypercapnia; N39.0 Urinary tract infection, site not specified; B37.0 Candidal stomatitis; E44.0 Moderate protein-calorie malnutrition; D68.59 Other primary thrombophilia; Z68.1 Body mass index [BMI] 19.9 or less, adult; R64 Cachexia; I13.0 Hypertensive heart and chronic kidney disease with heart failure and stage 1 through stage 4 chronic kidney disease, or unspecified chronic kidney disease; J44.0 Chronic obstructive pulmonary disease with (acute) lower respiratory infection; N18.31 Chronic kidney disease, stage 3a; R13.10 Dysphagia, unspecified; I50.9 Heart failure, unspecified; E11.22 Type 2 diabetes mellitus with diabetic chronic kidney disease; M54.9 Dorsalgia, unspecified; E11.40 Type 2 diabetes mellitus with diabetic neuropathy, unspecified; R29.6 Repeated falls; T46.0X5A Adverse effect of cardiac-stimulant glycosides and drugs of similar action, initial encounter; I48.91 Unspecified atrial fibrillation; I25.10 Atherosclerotic heart disease of native coronary artery without angina pectoris; E78.5 Hyperlipidemia, unspecified; Z82.49 Family history of ischemic heart disease and other diseases of the circulatory system; Z87.891 Personal history of nicotine dependence; Z79.899 Other long term (current) drug therapy; Z88.8 Allergy status to other drugs, medicaments and biological substances; Z79.84 Long term (current) use of oral hypoglycemic drugs; Z85.038 Personal history of other malignant neoplasm of large intestine; Z91.81 History of falling; Y92.89 Other specified places as the place of occurrence of the external cause; Z86.79 Personal history of other diseases of the circulatory system; Z51.5 Encounter for palliative care
CPT/HCPCS: 34701; 36415; 36600; 71045; 72070; 80048; 80053; 80162; 81001; 82378; 82805; 82962; 83036; 83605; 83735; 84443; 84484; 85025; 85610; 85730; 86850; 86900; 86901; 87081; 87086; 92610; 93005; 93306; 94640; 97110; 97116; 97163; 97530; 99152; G0378; J1335; J1450; J1815; J2470